=== PATIENT | female | born 1995 | race Caucasian/White ===

== ENCOUNTER 2020-09-01 10:54 | Outpatient (RCR) | payer BC, OTHER, SELFPAY ==
[2020-09-01 11:01] VITALS: BMI 50.9
[2020-09-01 11:10] VITALS: BMI 50.9
== END 2020-11-16 09:15 | disposition home or self-care (01) ==
LOC: ANHDMC 10:54
PROVIDERS: PCP Nurse Practitioner Family; Visit Provider Nurse Practitioner Family
DX: E66.01 Morbid (severe) obesity due to excess calories (principal); Z71.3 Dietary counseling and surveillance
CPT/HCPCS: 97802

== ENCOUNTER 2021-01-05 11:00 | Outpatient (RCR) | payer BC, OTHER, SELFPAY ==
[2020-12-10 11:09] VITALS: BMI 49.3
[2020-12-10 11:11] VITALS: BMI 49.3
[2021-01-05 11:09] VITALS: BMI 49.3
== END 2021-03-01 14:24 | disposition home or self-care (01) ==
LOC: ANHDMC 11:00
PROVIDERS: PCP Nurse Practitioner Family; Visit Provider Nurse Practitioner Family
DX: E66.01 Morbid (severe) obesity due to excess calories (principal); Z71.3 Dietary counseling and surveillance
CPT/HCPCS: 97803

== ENCOUNTER 2021-03-12 16:17 | Emergency (ER) | payer BC, OTHER, SELFPAY ==
--- NOTE | 2021-03-12 16:23 | ED_ITS ---
HPI - URI/Sore Throat General Chief Complaint: Upper Respiratory Infection Stated Complaint: Fatigue,Fever,Chills Time Seen by Provider: 03/12/21 16:33 Source: patient and RN notes reviewed Mode of arrival: ambulatory Limitations: no limitations Related Data Allergies Allergy/AdvReac Type Severity Reaction Status Date / Time venom-honey bee Allergy Severe SEVERE Verified 03/12/21 16:34 SWELLING AT SITE kiwi Allergy Mild Itching Verified 03/12/21 16:34 Review of Systems Review of Systems: Narrative: CONSTITUTIONAL: Denies malaise, chills, sweats, or fever. EYES: Denies visual changes, redness, or discharge. ENT: Reports rhinorrhea, congestion, sinus pain, otalgia and sore throat. CARDIOVASCULAR: Denies chest pain, palpitations, or edema. RESPIRATORY: Reports cough. Denies dyspnea. GASTROINTESTINAL: Denies abdominal pain, nausea, vomiting, diarrhea SKIN: Denies rash or itching. MUSCULOSKELETAL: Denies myalgia. NEUROLOGIC: Denies headache. All systems reviewed & are unremarkable except as noted in HPI and below PMFSH Social History Social History Spiritual care concerns: No Comments At time of signature, agree with nursing past medical, surgical, social and family history. There is no relevant family history pertinent to the presenting complaint Exam Narrative: Exam Narrative: GENERAL: Well-appearing, well-nourished, and in no acute distress. HEAD: Normocephalic EYES: PERRLA, conjunctivae clear ENT: Nares clear, turbinates edematous and erythematous, clear discharge. Mucous membranes moist. TM pearly pugh with dull light reflex bilaterally; no tragal tenderness. Oropharynx erythematous without lesions. Tonsils enlarged and without exudate, no drooling, no hoarseness, no trismus, uvula midline. NECK: Supple. No lymphadenopathy CHEST: Clear to auscultation, breath sounds equal. No wheezing, rhonchi, rales, or stridor. No respiratory distress, speaks in full sentences. HEART: Regular rate and rhythm. No murmur heard. SKIN: Warm, dry, no rash. NEURO: Alert and oriented x3. PSYCH: Normal mood and affect Course Course Emergency Course: Patient is aware of diagnosis, understands and agrees to treatment plan. Anticipatory guidance given. Patient agrees to follow-up as directed and is aware of reasons to seek care at the emergency department. Portions of this record may have been created with voice recognition software Vital Signs Vital signs: Reviewed. MDM - URI/Sore Throat MDM Narrative Medical decision making narrative: Differential diagnosis considered: Beebe virus, strep pharyngitis, allergic rhinitis, upper respiratory tract infection, sinusitis, rhinosinusitis, nasopharyngitis. viral pharyngitis, otitis media, otitis externa, pneumonia, bronchitis, viral cough syndrome, viral syndrome, and influenza. Exam findings show no acute concerns or changes; patient is non- toxic appearing and is in no distress. Patient is appropriate for outpatient treatment and follow-up. Critical Care Time Critical Care Time Critical Care Time: No
[2021-03-12 16:28] VITALS: BP 158/94; PULSE 59; RESP 18; TEMP 36.9; O2SAT 100
--- NOTE | 2021-03-12 16:37 | ED.FEVER ---
HPI - Fever General Chief Complaint: Upper Respiratory Infection Stated Complaint: Fatigue,Fever,Chills Time Seen by Provider: 03/12/21 16:33 Source: patient and RN notes reviewed Mode of arrival: ambulatory Limitations: no limitations History of Present Illness HPI Narrative: 25-year-old female presents with concern for 1 week history of general malaise, fever, cold chills, nausea without vomiting, one episode of diarrhea daily. Reports symptoms worsen at night. She denies cough, shortness of breath, rhinorrhea, nasal congestion, sore throat, ear pain. She denies abdominal pain. Reports low back pain for 1 week. She denies dysuria, urgency, frequency, hematuria. MD elicited complaint: fever Related Data Home Medications Medication Instructions Recorded Confirmed escitalopram oxalate [Lexapro] 20 mg PO DAILY 03/12/21 03/12/21 Allergies Allergy/AdvReac Type Severity Reaction Status Date / Time venom-honey bee Allergy Severe SEVERE Verified 03/12/21 16:34 SWELLING AT SITE kiwi Allergy Mild Itching Verified 03/12/21 16:34 Review of Systems Review of Systems: Narrative: CONSTITUTIONAL: Reports fatigue, malaise, chills, or fever. EYES: Denies visual changes, redness, or discharge. ENT: Denies rhinorrhea, congestion, sinus pain, otalgia or sore throat. CARDIOVASCULAR: Denies chest pain, palpitations, or edema. RESPIRATORY: Denies cough or dyspnea. GASTROINTESTINAL: Denies abdominal pain, vomiting. Reports nausea and diarrhea GENITOURINARY: Denies dysuria or hematuria. SKIN: Denies rash or itching. MUSCULOSKELETAL: Reports bilateral low back pain, myalgia. NEUROLOGIC: Denies numbness, weakness, or headache. All systems reviewed & are unremarkable except as noted in HPI and below PMFSH Social History Social History Gender identity (if verbalized by the patient): Female Spiritual care concerns: No Comments At time of signature, agree with nursing past medical, surgical, social and family history. There is no relevant family history pertinent to the presenting complaint Exam Narrative: Exam Narrative: GENERAL: Well-appearing, well-nourished, and in no acute distress. HEAD: Normocephalic, atraumatic. EYES: PERRLA, conjunctivae clear, and EOMI. No nystagmus. ENT: Nares clear, turbinates pink, no rhinorrhea or epistaxis. Mucous membranes moist. TM pearly pugh with sharp light reflex bilaterally; no tragal tenderness. Oropharynx without erythema or lesions. Tonsils not enlarged and without exudate. NECK: Supple. No lymphadenopathy. CHEST: No respiratory distress. Clear to auscultation. No bony deformities, no asymmetry. Speaks in full sentences. HEART: Regular rate and rhythm. No murmur heard. Normal peripheral pulses. ABDOMEN: Soft, nontender, obese, normal active bowel sounds, no palpable masses. EXTREMITIES: Normal range of motion. No edema. Normal strength and sensation. No midline back tenderness SKIN: Warm, dry, no rash. NEURO: Alert and oriented x3. No focal deficits. PSYCH: Normal mood and affect Course Course Emergency Course: Patient is aware of diagnosis, understands and agrees to treatment plan. Anticipatory guidance given. Patient agrees to follow-up as directed and is aware of reasons to seek care at the emergency department. Portions of this record may have been created with voice recognition software Vital Signs Vital signs: Vital Signs Temperature 98.5 F 03/12/21 16:28 Pulse Rate 59 L 03/12/21 16:28 Respiratory Rate 18 03/12/21 16:28 Blood Pressure 158/94 H 03/12/21 16:28 Pulse Oximetry 100 03/12/21 16:28 Temperature 98.5 F 03/12/21 16:28 Pulse Rate 59 L 03/12/21 16:28 Respiratory Rate 18 03/12/21 16:28 Blood Pressure 158/94 H 03/12/21 16:28 Pulse Oximetry 100 03/12/21 16:28 Reviewed. MDM - Fever MDM Narrative Medical decision making narrative: Differential diagnosis considered: UTI, pyelonephritis, Beebe virus, strep pharyngitis, allergic rhi
== END 2021-03-12 16:59 | disposition home or self-care (01) ==
PROVIDERS: Emergency Provider Nurse Practitioner; PCP Nurse Practitioner Family
DX: B34.9 Viral infection, unspecified (principal); F41.9 Anxiety disorder, unspecified; F32.9 Major depressive disorder, single episode, unspecified
CPT/HCPCS: 81003; 99212; G0463

== ENCOUNTER 2023-05-31 10:17 | Outpatient (CLI) | payer BC, SELFPAY ==
[2023-05-31 12:09] LABS: Basophils Percent Auto 0.7 % (0.2-1.2); Eosinophils Absolute Auto 0.2 K/mm3 (0-0.3); Eosinophils Percent Auto 3.1 % (0-4.4); Hematocrit 37.4 % (37.0-47.0); Hemoglobin 11.7 g/dL (12.0-15.0); Lymphocytes Absolute Auto 2.63 K/mm3 (0.9-3.2); Lymphocytes Percent Auto 43.5 % (18.3-44.2); Mean Corpuscular HGB Conc 31.3 g/dl (32-36); Mean Corpuscular Hemoglobin 27.5 pg (26-34); Mean Corpuscular Volume 87.8 fl (80-100); Mean Platelet Volume 12.1 fl (7.4-10.4); Monocytes Absolute Auto 0.5 K/mm3 (0.1-0.6); Monocytes Percent Auto 8.6 % (2.6-8.5); Neutrophils Absolute Auto 2.7 K/mm3 (1.3-6.7); Neutrophils Percent Auto 44.1 % (45.5-73.1); Platelet Count Result 297 k/mm3 (150-375); Red Blood Count 4.26 M/mm3 (4.2-5.4); Red Cell Distribution Width 12.6 % (11.5-14.5); White Blood Count 6.1 K/mm3 (4.5-10.0)
[2023-05-31 12:24] LABS: Anion Gap 9 mmol/L (8-16); Blood Urea Nitrogen 11 mg/dL (7-17); Carbon Dioxide 25 mmol/L (22-30); Chloride 106 mmol/L (98-107); Potassium 3.8 mmol/L (3.4-5.0); Sodium 140 mmol/L (137-145)
[2023-05-31 12:25] LABS: Alanine Aminotransferase 23 U/L (6-35); Albumin Level 3.9 g/dL (3.5-5.1); Alkaline Phosphatase 54 U/L (38-126); Aspartate Amino Transferase 25 U/L (14-36); Bilirubin,Total 0.8 mg/dL (0.2-1.3); Calcium 8.3 mg/dL (8.4-10.2); Cholesterol 165 mg/dL (0-200); Estimated Glomerular Filt Rate > 60; Glucose 87 mg/dL (65-110); HDL Direct 41 mg/dL; Triglycerides 85 mg/dL (<150)
[2023-05-31 12:35] LABS: LDL Cholesterol Direct 96 mg/dL
[2023-05-31 12:58] LABS: Hemoglobin A1C 5.2 % (<5.7)
[2023-05-31 13:06] LABS: Thyroid Stimulating Hormone Reflex 0.497 uIU/mL (0.465-4.68)
== END 2023-05-31 10:18 | disposition home or self-care (01) ==
LOC: ANHLAB 10:22
PROVIDERS: PCP Nurse Practitioner Family; Visit Provider Nurse Practitioner Family
DX: Z13.0 Encounter for screening for diseases of the blood and blood-forming organs and certain disorders involving the immune mechanism (principal); Z13.1 Encounter for screening for diabetes mellitus; Z13.29 Encounter for screening for other suspected endocrine disorder; Z13.220 Encounter for screening for lipoid disorders
CPT/HCPCS: 36415; 80053; 80061; 83036; 84443; 85025

== ENCOUNTER 2023-09-27 00:11 | Day surgery (SDC) | payer BC, SELFPAY ==
[2023-09-14 10:13] VITALS: BMI 48.5
--- NOTE | 2023-09-14 10:18 | PC.NURSE ---
Report to the Outpatient Waiting Room, entrance under the green pavilion located off [facility], at time 0600 on date 09/27/23. Planned Procedure Time: 0730. Time changes happen often and if your time is changed the preop area will call you the afternoon before. - You and your visitor will be asked to self-screen and do not enter if you have any COVID symptoms. - A mask is optional within the hospital at this time. Patients may have clear liquids (water, carbonated beverages, clear teas, apple juice) until 3 hours prior to surgery with a maximum of 20 ounces. - No food from midnight until time of surgery Take the following medications with a SIP of water the morning of surgery: NONE DO NOT STOP ANY OF YOUR OTHER PRESCRIPTION MEDICATIONS PRIOR TO SURGERY ?EXCEPT THE FOLLOWING Medications to discontinue per physician: VITAMINS/SUPPLEMENTS Date to take last dose: 09/23/23 Please no make-up, nail yoruba, hairspray, perfume, deodorant, or body powder the day of surgery. No jewelry (including any body piercings) or valuables the day of surgery, leave them at home. Please take a shower or bath the night before, or the morning of, surgery with an antibacterial soap. Wear comfortable, loose fitting clothing. - Jewelry must be removed prior to entering the operating room. Rings and piercings that are not removed may be cut off. - The hospital will not accept responsibility for valuables. - Please leave all valuables, including medications, at home the day of surgery. If you are going home after surgery, a licensed flatbed driver must drive you home. - NO public transportation without another adult if you receive anesthesia. - We recommend that an adult stay with you for 24 hours following discharge. - We also recommend that you do not drive, make important decision, drink alcoholic beverages, or take any drugs that were not prescribed by your health care provider for at least 24 hours after your discharge time. Follow any additional instructions given to you from your surgeon. If you or anyone in your household have experienced Covid symptoms in the past week, please notify your surgeon or the nurse liaison at the phone number below for possible testing. Telephone instructions given to PT - FLAKITA GOTTI and asked if any additional questions and then verbalized understanding. Patient advised to call surgeon office or pre surgery nurse liaison [phone] if any additional questions.
[2023-09-27] VITALS (7 sets, daily range): BP systolic 106–134; BP diastolic 60–85; PULSE 50–65; RESP 12–20; TEMP 36.2–36.3; O2SAT 98–100
[2023-09-27] MEDS: LACTATED RINGERS 1,000 ML 30 ML IV CONT ×2 (06:50→08:51)
[2023-09-27] MEDS: ACETAMINOPHEN 500 MG TABLET 1000 MG PO (06:50)
[2023-09-27] MEDS: KETOROLAC 15 MG/ML VIAL (*BKC) IV PUSH (06:50)
[2023-09-27] MEDS: SCOPOLAMINE 1 MG PATCH 1 PATCH TRANSDERM (06:50)
--- NOTE | 2023-09-27 06:53 | P.PNAN_ITS ---
Anes - Initial Pre Proc Eval Procedure: Operation Date: 09/27/23 07:30 Proposed Procedures p Bilateral Laparoscopic Salpingectomy - Kimberly Romo MD Date/Time: 09/27/23 06:53 Surgeon: Kimberly Romo MD Pre Op Diagnosis: desires sterilization Patient Data Age: 28 Gender: F Height: 1.7 m Weight: 140.6 kg Allergies Allergy/AdvReac Type Severity Reaction Status Date / Time venom-honey bee Allergy Severe SEVERE Verified 09/14/23 10:12 SWELLING AT SITE kiwi Allergy Mild Itching Verified 09/14/23 10:12 avocado Allergy Vomiting Verified 09/14/23 10:12 lamotrigine Allergy Hives Verified 09/14/23 10:12 Home Medications Medication Instructions Recorded Confirmed Type escitalopram oxalate 20 mg tablet 20 mg PO HS 03/12/21 09/14/23 History (Lexapro) magnesium 250 mg tablet 250 mg PO DAILY 09/14/23 09/14/23 History Patient hx anesthesia problems: none Family hx anesthesia problems: none Results Review: All pre-operative results and documents have been reviewed as part of the pre- operative evaluation. ON LICENSE OF [facility] Past Medical History Medical History (Updated 09/27/23 @ 06:53 by Eduar Roy MD) Morbid obesity Surgical History Surgical History (Updated 09/27/23 @ 06:53 by Eduar Roy MD) Hx of tonsillectomy Social History Social History Smoking status: Never smoker Alcohol intake: current Alcohol use details: RARE Substance use: current Substance use type: marijuana Living arrangements: with family Gender identity (if verbalized by the patient): Female Spiritual care concerns: No Anes - Eval Final PreProcedure Day of Procedure 09/27/23 06:53 Patient weight: morbidly obese Heart: regular rate and rhythm Lungs: clear to auscultation Airway: Mallampati scale class II Neurological: alert and oriented Last oral intake: >/= 8 hours ASA classification: III Emergent: no Anesthetic plan: proceed Anesthesia type and monitoring: general ETT and standard monitoring Results Review: All pre-operative results and documents have been reviewed as part of the pre- operative evaluation. Informed Consent: The patient's anesthetic plan and its attendant risks and benefits were discussed with the patient/family/POA. Questions were solicited and answers provided to the satisfaction of the patient/family/POA.
--- NOTE | 2023-09-27 07:11 | WPDHPUPDATE1 ---
History and Physical Update Update Date/Time: 09/27/23 07:11 History and Physical has been reviewed, including an updated exam of the patient. There are NO changes in the patient's condition. Risks, benefits, and alternatives have been discussed and questions answered. Patient agrees to proceed with procedure.
--- NOTE | 2023-09-27 07:16 | PM.IMHP ---
H&P: HPI History of Present Illness Date/Time: 09/27/23 07:16 Chief Complaint: Unwanted fertility Narrative: 28-year-old female desires infertility. We agreed to perform laparoscopic bilateral salpingectomy. She understands the risks. She understands the procedure very well. She understands that injuries may occur that result in hospitalization, more surgery and severe illness. She understands there is risk of hemorrhage infection. She denies any nausea, vomiting, fever, chills. She denies any chest pain or shortness of breath. Review of Systems Review of Systems: All systems reviewed & are unremarkable except as noted in HPI and below Constitutional: Constitutional: Denies chills, Denies fatigue, Denies fever(s) and Denies weakness Eyes: Eyes: Denies blurry vision, Denies change in vision, Denies loss of peripheral vision, Denies loss of vision, Denies other visual disturbances and Denies eye pain ENT: Denies vertigo, Denies dizziness, Denies hearing loss, Denies mouth pain, Denies nasal obstruction, Denies neck mass and Denies neck pain Cardiovascular: Cardiovascular: Denies chest pain, Denies diaphoresis, Denies syncope, Denies leg edema and Denies dyspnea Respiratory: Respiratory: Denies chest congestion, Denies cough, Denies hemoptysis, Denies dyspnea and Denies wheezing Gastrointestinal: Gastrointestinal: Denies abdominal pain, Denies constipation, Denies diarrhea, Denies nausea and Denies vomiting Genitourinary: Genitourinary: Denies hematuria, Denies change in libido, Denies nocturia, Denies genital lesions, Denies flank pain and Denies urinary urgency Musculoskeletal: Musculoskeletal: Denies abnormal gait, Denies back pain, Denies myalgias, Denies arthralgias, Denies joint swelling, Denies muscle weakness and Denies neck pain Integumentary/Breasts: Skin/Breast: Denies swelling, Denies breast pain, Denies breast mass, Denies dry skin, Denies nipple discharge, Denies unusual bruising and Denies jaundice Neurologic: Denies Neuro-related abnormal movements, Denies Abnormal speech present, Denies abnormal gait, Denies behavioral changes, Denies confusion, Denies vertigo, Denies dizziness, Denies syncope, Denies loss of vision, Denies memory loss, Denies convulsions and Denies weakness Psychiatric: Psychiatric: Denies abnormal sleep pattern, Denies behavioral changes, Denies change in libido, Denies confusion, Denies depression, Denies anhedonia and Denies memory loss Endocrine: Endocrine: Reports no additional endocrine complaints, Denies change in libido and Denies fatigue Hematologic/Lymphatic: Hematologic/Lymphatic: Reports no additional hematologic/lymphatic complaints Allergic/Immunologic: Allergic/Immunologic: Reports no additional allergic/immunologic complaints and Denies wheezing PMFSH Past Medical History Medical History (Updated 09/27/23 @ 07:18 by Kimberly Romo MD) Morbid obesity Surgical History Surgical History (Updated 09/27/23 @ 06:53 by Eduar Roy MD) Hx of tonsillectomy Social History Social History Smoking status: Never smoker Alcohol intake: current Alcohol use details: RARE Substance use: current Substance use type: marijuana Living arrangements: with family Gender identity (if verbalized by the patient): Female Spiritual care concerns: No Meds Home Medications and Allergies Home Medications Medication Instructions Recorded Confirmed Type escitalopram oxalate 20 mg tablet 20 mg PO HS 03/12/21 09/14/23 History (Lexapro) magnesium 250 mg tablet 250 mg PO DAILY 09/14/23 09/14/23 History Allergies Allergy/AdvReac Type Severity Reaction Status Date / Time venom-honey bee Allergy Severe SEVERE Verified 09/27/23 07:11 SWELLING AT SITE kiwi Allergy Mild Itching Verified 09/27/23 07:11 avocado Allergy Vomiting Verified 09/27/23 07:11 lamotrigine Allergy Hives Verified 09/27/23 07:11
--- NOTE | 2023-09-27 08:38 | W.PM.PROC2 ---
Procedure Note - Detailed Date of Procedure 09/27/23 Pre-op Diagnosis desires sterilization Post-op Diagnosis Same Procedure Performed Laparoscopic bilateral salpingectomy Surgeon Kimberly Romo MD Anesthesia General Indications Unwanted fertility Findings Normal pelvic anatomy Description of Procedure The patient was taken the operating room. She was prepped and draped in the dorsal lithotomy position after induction of general anesthesia. A 5 mm skin incision was made in the left upper quadrant of the abdominal skin. A 5 mm trocar was inserted the intra-abdominal cavity under direct visualization of the scope. Pneumoperitoneum was achieved. A 5 mm trocar was inserted in the left lower quadrant identical fashion. A 5 mm infraumbilical trocar was inserted in identical fashion as well. The bilateral fallopian tubes were removed. This was done by using a LigaSure cautery. The mesosalpinx adjacent to the tube was cauterized transected with LigaSure. This was initiated in the area the ovary and in a stepwise fashion moved medially to the area of the cornu of the uterus. Once there the fallopian tube was cauterized and transected. This was done in identical fashion on each side. The fallopian tubes were taken out through the left lower quadrant trocar site. The pneumoperitoneum was reduced. The trocars removed. The skin was closed with subcuticular 4 Monocryl and covered with Dermabond. She was taken to cover stable condition. Sponge lap and needle counts were correct x2. Estimated Blood Loss 5 Drains No Packing No Pathology Yes Complications No immediate complications Condition Stable Disposition PACU
--- NOTE | 2023-09-27 08:47 | SUR.PHASEI ---
0847: Simple mask removed.
[2023-09-27] MEDS: fentaNYL CITRATE INJ (*CRX) 100 MCG/2 ML VIAL 25 MCG IV PUSH ×2 (09:06→09:09)
[2023-09-27] MEDS: oxyCODONE HCL (*CRX) 5 MG TAB IR PO (09:37)
[2023-09-27] MEDS: ONDANSETRON INJ 4 MG/2 ML VIAL IV PUSH (09:38)
== END 2023-09-27 10:20 | disposition home or self-care (01) ==
PROVIDERS: PCP Nurse Practitioner Family; Visit Provider Obstetrics & Gynecology
PROC: (CPT 49320; principal; 2023-09-27 07:30)
DX: Z30.2 Encounter for sterilization (principal); N83.8 Other noninflammatory disorders of ovary, fallopian tube and broad ligament; F12.90 Cannabis use, unspecified, uncomplicated; E66.01 Morbid (severe) obesity due to excess calories; Z68.42 Body mass index [BMI] 45.0-49.9, adult
CPT/HCPCS: 58661; 88302; A9270; J0330; J1100; J1596; J1885; J2250; J2405; J2704; J3010; J7120

== ENCOUNTER 2024-04-15 11:38 | Outpatient (CLI) | payer BC, SELFPAY ==
[2024-04-15 12:32] LABS: Hematocrit 42.9 % (37.0-47.0); Hemoglobin 13.6 g/dL (12.0-15.0); Mean Corpuscular HGB Conc 31.7 g/dl (32-36); Mean Corpuscular Hemoglobin 28.4 pg (26-34); Mean Corpuscular Volume 89.6 fl (80-100); Mean Platelet Volume 11.9 fl (7.4-10.4); Platelet Count Result 274 k/mm3 (150-375); Red Blood Count 4.79 M/mm3 (4.2-5.4); Red Cell Distribution Width 12.3 % (11.5-14.5); White Blood Count 6.8 K/mm3 (4.5-10.0)
[2024-04-15 12:46] LABS: Alanine Aminotransferase 20 U/L (6-35); Albumin Level 4.3 g/dL (3.5-5.1); Alkaline Phosphatase 54 U/L (38-126); Anion Gap 10 mmol/L (4-12); Aspartate Amino Transferase 23 U/L (14-36); Bilirubin,Total 1.2 mg/dL (0.2-1.3); Blood Urea Nitrogen 11 mg/dL (7-17); Calcium 8.9 mg/dL (8.4-10.2); Carbon Dioxide 20 mmol/L (22-30); Chloride 107 mmol/L (98-107); Cholesterol 170 mg/dL (0-200); Estimated Glomerular Filt Rate > 60; Glucose 90 mg/dL (65-110); HDL Direct 40 mg/dL; Sodium 137 mmol/L (137-145); Triglycerides 110 mg/dL (<150)
[2024-04-15 12:50] LABS: Hemoglobin A1C 5.6 % (<5.7)
[2024-04-15 12:56] LABS: LDL Cholesterol Direct 115 mg/dL
[2024-04-15 13:24] LABS: Thyroid Stimulating Hormone Reflex 0.727 uIU/mL (0.465-4.68)
== END 2024-04-15 11:39 | disposition home or self-care (01) ==
LOC: ANHLAB 11:41
PROVIDERS: PCP Nurse Practitioner Family; Visit Provider Nurse Practitioner Family
DX: Z13.29 Encounter for screening for other suspected endocrine disorder (principal); Z13.220 Encounter for screening for lipoid disorders; Z13.1 Encounter for screening for diabetes mellitus; Z13.0 Encounter for screening for diseases of the blood and blood-forming organs and certain disorders involving the immune mechanism
CPT/HCPCS: 36415; 80053; 80061; 83036; 84443; 85027

== ENCOUNTER 2024-12-01 11:42 | Emergency (ER) | payer BC, SELFPAY ==
--- NOTE | ~2024-12-01 | XR_ITS ---
AP view of the pelvis and AP and lateral views of the left hip Clinical history: Pain Findings: No acute fracture or dislocation is seen. Osseous alignment is anatomic. Bilateral hip and SI joint spaces are preserved. Soft tissues are unremarkable. Impression: No significant abnormality is seen. Reviewed, dictated and finalized at [facility]. Impression: No significant abnormality is seen.
--- NOTE | ~2024-12-01 | XR_ITS ---
Lumbosacral Spine: AP and lateral views Clinical History: Pain Findings: The normal lordotic curve is maintained. The vertebral bodies and posterior elements are i ntact. The intervertebral disc spaces are preserved. The sacroiliac joints are normally outlined. Impression: No significant abnormality. Reviewed, dictated and finalized at [facility]. Impression: No significant abnormality.
--- OUTSIDE RECORDS SUMMARY | 2024-12-01 11:44 | XMS_ITS | Referral Summary ---
Author Organization [facility] Address [address] [place] [address] Care Team Providers Care Treatment Supervisor Name Role Phone Unavailable Primary Care Provider Unavailabl e Source Comments [facility],non-owned Affiliates and Associated Physician Practices is amultiple site organization consisting of ambulatory clinics and hospital sitesin [place], [place], [place] and [place]. This disclosure is being madepursuant to the Care Everywhere program and may not contain all information available regarding this patient. Last updated 18.[facility] Allergies Active Allergy Reactions Criticality Noted Date Comments Bee Swelling 06/20/2013 Extensive local reaction Medications * Be aware that medications may not be up to date on this document. Alwaysverify current medications with the patient. Medication Sig Dispensed Refills Start Date End Date Status lisdexamfetamine (VYVANSE) 30 MG capsule Take 1 Cap by mouth every morning for 30 days 30 Cap 09/02/2016 Active Multiple Vitamins-Minerals (BIOTIN PLUS/CALCIUM/VIT D3 PO) Active sertraline (ZOLOFT) 50 MG tablet Take 1 Tab by mouth once daily 30 Tab 5 10/10/2016 Active Additional Information Patient taking differently:50 mg OralPRN, Reported on 02/22/2017 CALCIUM PO Take 60 mg by mouth once daily Active Active Problems Problem Noted Date Diagnosed Date Lactose intolerance 10/17/2016 Moderate single current epis ode of major depressive disorder 02/04/2016 Anxiety 02/04/2016 BMI (body mass index), pediatric, 95-99% for age 1007/08/2013 ADHD (attention deficit hype ractivity disorder), inattentive type 11/09/2010 Resolved Problems Problem Noted Date Diagnosed Date Resolved Date Depression 06/04/2012 07/08/2013 Immunizations Name Administration Dates Next Due DPT 04/20/2001, 7,1996,09/13,1996 HEP A PEDS 2 DOSE 11/15/2005,05/16/2005 HEP B VACCINE, PED/ADOL 02/14/1997,1996, HIB BOOSTER 08/18/1997, 7,1996,07/12 Human Papilloma Virus Vaccine 12/18/2008, 008,06/17/2008 INFLUENZA VACCINE 07/11/2008 INFLUENZA VACCINE, QUADR. (F LUZONE; FLULAVAL; FLUARIX; AFLURIA QUADRIVALENT; 6MO+), 0.5 ML (IIV4) 06/13/2016,07/21/2014,07/08/2013 MENINGOCOCCAL CONJUGATE (MCV4P) 10/17/2014,05/31 MMR 04/20/2001,05/16/1997 POLIO IPV 04/20/2001 POLIO OPV 1996,1996,1996 PPD 04/20/2001,05/21/1999 TDAP (7yrs+) 04/12/2007 Social History Tobacco Use Types Packs/Day Years Used Date Smoking Tobacco: Never Smokeless Tobacco: Never Alcohol Use Standard Drinks/Week Comments No 0 (1 standard drink = 0.6 oz pur e alcohol) Sex and Gender Information Value Date Recorded Sex Assigned at Not on file Gender Identity Not on file Sexual Orientation Not on file Last Filed Vital Signs Vital Sign Reading Time Taken Comments Blood Pressure 106/68 09/02/2016 9:07 AM OPERATION AGENT Pulse 76 04/21/2016 2:36 PM CDT Temperature 37.3 C (99.1 F) 08/01/2016 10:13 AM OPERATION AGENT Respiratory Rate 20 02/24/2016 12:3 6 PM CDT Oxygen Saturation 97% 02/24/2016 12: 36 PM CDT Inhaled Oxygen Concentration - - Weight 131.3 kg (289 lb 6.4 oz) 02/22/2017 9:29 AM CDT Height 169.5 cm (5' 6.75 ) 09/02/2016 9:07 AM CS T Body Mass Index 45.67 09/02/2016 9:07 AM OPERATION AGENT Plan of Treatment Not on file Goals Goal Patient Goal Type Associated Problems Recent Progress Patient-Stated? Author Reduce calorie intake to 1800 calories per day Diet Not on track( 016 7:00 PM CDT) No Diana Cheek MD Note: Caring for Your Overweight Child Eating a healthy diet: Think of the food you eat in terms of GO, SLOW, and WHOA foods. You can enjoy GO foods almost any time you like. Limit SLOW foods to certain occasions, no more than a few times per week. And enjoy WHOA foods only on special occasions, and then eat only a small portion. GO foods include low-fat, low-calorie foods that are also low in added sugar. They tend to be rich in nutrients, such as vitamins, minerals, and other healthy substances. Fresh fruits and vegetables are great examples of GO foods. That said, fried vegetables and fruits canned in syrup, despite their vital ingredients, fall into the category of WHOA foods. Be sure to stock up on GO foods so that you can offer a variety of foods to keep things interesting. SLOW foods tend to be higher in fat and added sugar than GO foods are. Examples include fruit juices, baked goods made with white, refined flour; and poultry cooked with the skin still on. WHOA foods are the highest in fat and added sugar. Foods prepared with heavy creams and butter, fried foods, and fatty meats are examples of foods you should only eat once in a while. One way to identify unhealthy eating triggers is for you to keep a journal, in which they writes down the food they ate, where they ate it, the time of day and - extremely important - the reasons for eating. Where can I go for more information? [place] [employer] ( ) www.aap.org, HealthyChildren.org www.healthychildren.org Website and free downloadable victor m for smartphones: http://www.[employer]/ [facility] Lifestyle: Use safety retraint in car Lifestyle On track( 016 2:39 PM CDT) Giulia Serna RN Note: NEW CAR SEAT SAFETY RULES Seat belt laws should apply to all vehicle occupants Administered Medications FLAKITA CASTRO Personal/Family 1995 [address] [place] [address] [facility] [employer] [id number] [place] [address]
--- OUTSIDE RECORDS SUMMARY | 2024-12-01 11:44 | XMS_ITS | Patient Health Summary ---
Author Organization [facility] Address [address] [place] [address] Care Team Providers Care Boiler Tube Reamer Name Role Phone Unavailable Primary Care Provider Unavailabl e Note from [facility],non-owned Affiliates and Associated Physician Practices is amultiple site organization consisting of ambulatory clinics and hospital sitesin [place], [place], [place] and [place]. This disclosure is being madepursuant to the Care Everywhere program and may not contain all information available regarding this patient. Last updated 18.[facility] Allergies * Bee(Swelling) Medications * Be aware that medications may not be up to date on this document. Alwaysverify current medications with the patient. * lisdexamfetamine (VYVANSE) 30 MG capsule(Started 09/02/2016) Take 1 Cap by mouth every morning for 30 days * Multiple Vitamins-Minerals (BIOTIN PLUS/CALCIUM/VIT D3 PO) * sertraline (ZOLOFT) 50 MG tablet(Started 10/10/2016) Take 1 Tab by mouth once daily 5 refills remaining * CALCIUM PO Take 60 mg by mouth once daily Active Problems Problem Noted Date Diagnosed Date Lactose intolerance 10/17/2016 Moderate single current epis ode of major depressive disorder 02/04/2016 Anxiety 02/04/2016 BMI (body mass index), pediatric, 95-99% for age 1007/08/2013 ADHD (attention deficit hype ractivity disorder), 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 (FLUZONE; FLULAVAL; FLUARIX; AFLURIA QUADRIVALENT; 6MO+), 0.5 ML (IIV4)(Given 06/13/2016, 07/21/2014, 07/08/2013) * MENINGOCOCCAL CONJUGATE (MCV4P)(Given 10/17/2014, 05/31/2011) * MMR(Given 04/20/2001, 05/16/1997) * POLIO IPV(Given 04/20/2001) * POLIO OPV(Given 1996, 1996, 1996) * PPD(Given 04/20/2001, 05/21/1999) * TDAP (7yrs+)(Given 04/12/2007) Social History Tobacco Use Types Packs/Day Years [...] Comments Blood Pressure 106/68 09/02/2016 9:07 AM MEDICAL ASSISTANT PER DIEM Pulse 76 04/21/2016 2:36 PM CDT Temperature 37.3 C (99.1 F) 08/01/2016 10:13 AM MEDICAL ASSISTANT PER DIEM Respiratory Rate 20 02/24/2016 12:3 6 PM CDT Oxygen Saturation 97% 02/24/2016 12: 36 PM CDT Inhaled Oxygen Concentration - - Weight 131.3 kg (289 lb 6.4 oz) 02/22/2017 9:29 AM CDT Height 169.5 cm (5' 6.75 ) 09/02/2016 9:07 AM CS T Body Mass Index 45.67 09/02/2016 9:07 AM MEDICAL ASSISTANT PER DIEM Procedures * XR FOOT LEFT 2VW(Performed 03/02/2017) Performed for Left foot pain * US ABDOMEN LIMITED(Performed 08/04/2016) Performed for Epigastric pain, Nausea without vomiting * LIPASE BLOOD(Performed 08/01/2016) Performed for Epigastric pain, Nausea without vomiting * AMYLASE BLOOD(Performed 08/01/2016) Performed for Epigastric pain, Nausea without vomiting * COMPREHENSIVE METABOLIC PANEL(Performed 08/01/2016) Performed for Epigastric pain, Nausea without vomiting * CBC W AUTO DIFFERENTIAL(Performed 08/01/2016) Performed for Epigastric pain, Nausea without vomiting * HEMOGLOBIN A1C(Performed 01/30/2016) Performed for BMI (body mass index), pediatric, 95-99% for age * LIPID PROFILE(Performed 01/30/2016) Performed for BMI (body mass index), pediatric, 95-99% for age * GLUCOSE(Performed 01/30/2016) Performed for BMI (body mass index), pediatric, 95-99% for age * T4 FREE(Performed 01/30/2016) Performed for Anxiety * TSH(Performed 01/30/2016) Performed for Anxiety * XR WRIST RIGHT 3VW OR MORE(Performed 07/21/2014) Performed for Right wrist pain * URINALYSIS - POINT OF CARE(Performed 07/10/2012) Performed for Nausea with vomiting * URINALYSIS - POINT OF CARE(Performed 10/21/2011) Performed for Abdominal pain, unspecified site * XR ABDOMEN KUB(Performed 10/21/2011) Performed for Abdominal pain, unspecified site * XR FOOT LEFT 3VW OR MORE(Performed 09/23/2010) Performed for Left foot pain * STREP A SCREEN - POINT OF CARE (AMB)(Performed 06/24/2010) Performed for Streptococcal sore throat * CULTURE AEROBIC+GRAM STAIN(Performed 05/17/2010) Performed for Acute Pharyngitis * STREP A SCREEN - POINT OF CARE (AMB)(Performed 05/17/2010) Performed for Acute Pharyngitis * CULTURE AEROBIC+GRAM STAIN(Performed 12/23/2009) Performed for Acute Pharyngitis * STREP A SCREEN - POINT OF CARE (AMB)(Performed 12/23/2009) Performed for Acute Pharyngitis Results * XR FOOT 2 VW LEFT (03/02/2017) Anatomical Region Laterality Modality Ankle / Foot Other Diana Cheek MD DIAGNOSTIC IMAGING O RDERABLES * US ABDOMEN LIMITED (08/04/2016) Anatomical Region Laterality Modality Abdomen Ultrasound Diana Cheek MD US ORDERABLES * (ABNORMAL) CBC W AUTO DIFFERENTIAL (08/01/2016 11:05 AM MEDICAL ASSISTANT PER DIEM) WBC 7.0 3.4 - 10.8 x10E3/uL [facility] INSURANCE BILL RBC 4.49 3.77 - 5.28 x10E6/uL [facility] INSURANCE BILL Hemoglobin 12.5 11.1 - 15.9 g/dL [facility] INSURANCE BILL Hematocrit 37.9 34.0 - 46.6 % [facility] INSURANCE BILL MCV 84 79 - 97 fL [facility] INSURANCE BILL MCH 27.8 26.6 - 33.0 pg [facility] INSURANCE BILL MCHC 33.0 31.5 - 35.7 g/dL [facility] INSURANCE BILL RDW 12.9 12.3 - 15.4 % [facility] INSURANCE BILL Platelet Count 288 150 - 379 x10E3/uL [facility] INSURANCE BILL Granulocytes % 49 % [facility] INSURANCE BILL Lymphocytes % 32 % [facility]ANCE [facility] Monocytes % 8 % [facility] INSURANCE BILL Eosinophils % 10 % [facility] INSURANCE BILL Basophils % 1 % [facility] INSURANCE BILL Immature Cells NOT NEEDED [facility] INSURANCE BILL Comment:Ancillary determined the test is not needed Granulocytes Absolute 3.5 1.4 - 7.0 x10E3/uL [facility] INSURANCE BILL Lymphocytes Absolute 2.2 0.7 - 3.1 x10E3/uL [facility] INSURANCE BILL Monocytes Absolute 0.6 0.1 - 0.9 x10E3/uL [facility] INSURANCE BILL Eosinophils Absolute 0.7(H) 0.0 - 0.4 x10E3/uL [facility] INSURANCE BILL Basophils Absolute 0.0 0.0 - 0.2 x10E3/uL [facility] INSURANCE BILL Immature Granulocytes 0 % [facility] INSURANCE BILL Immature Granulocytes Absolute 0.0 0.0 - 0.1 x10E3/uL [facility] INSURANCE BILL nRBC NOT NEEDED [facility] INSURANCE BILL Comment:Ancillary determined the test is not needed Comment Hematology NOT NEEDED [facility] INSURANCE BILL Comment:Ancillary determined the test is not needed Blood BLOOD SPECIMEN / Unknown 08/01/2016 11:05 AM MEDICAL ASSISTANT PER DIEM 08/01/2016 Narrative Resulting Agency Comment [facility] [address] [facility] [phone] Diana Cheek MD LAB - HEMATOLOGY ORD ERABLES [facility] INSURANCE BILL [address] [place] [address] * COMPREHENSIVE METABOLIC PANEL (08/01/2016 11:05 AM MEDICAL ASSISTANT PER DIEM) Glucose 84 65 - 99 mg/dL [facility] INSURANCE BILL BUN 12 6 - 20 mg/dL [facility] INSURANCE BILL Creatinine 0.91 0.57 - 1.00 mg/dL [facility] INSURANCE BILL BUN/Creatinine Ratio 13 8 - 20 [facility] INSURANCE BILL Sodium 141 136 - 144 mmol/L [facility] INSURANCE BILL Potassium 4.5 3.5 - 5.2 mmol/L [facility] INSURANCE BILL Chloride 104 97 - 106 mmol/L [facility] INSURANCE BILL CO2 23 18 - 29 mmol/L [facility] INSURANCE BILL Calcium 9.1 8.7 - 10.2 mg/dL [facility] INSURANCE BILL Protein Total 6.4 6.0 - 8.5 g/dL [facility] INSURANCE BILL Albumin 4.3 3.5 - 5.5 g/dL [facility] INSURANCE BILL Globulin Total 2.1 1.5 - 4.5 g/dL [facility] INSURANCE BILL Albumin/Globulin Ratio 2.0 1.1 - 2.5 [facility] INSURANCE BILL Bilirubin Total 0.8 0.0 - 1.2 mg/dL [facility] INSURANCE BILL Alkaline Phosphatase 63 39 - 117 IU/L [facility] INSURANCE BILL AST 19 0 - 40 IU/L [facility] INSURANCE BILL ALT 21 0 - 32 IU/L [facility] INSURANCE BILL Blood BLOOD SPECIMEN / Unknown 08/01/2016 11:05 AM MEDICAL ASSISTANT PER DIEM 08/01/2016 Narrative Resulting Agency Comment [facility] [address] [facility] [phone] Diana Cheek MD LAB - CHEMISTRY ZELDA HUNTER [facility] INSURANCE BILL [address] [place] [address] * (ABNORMAL) LIPASE BLOOD (08/01/2016 11:05 AM MEDICAL ASSISTANT PER DIEM) Lipase 62(H) 0 - 59 U/L [facility] INSURANCE BILL Blood BLOOD SPECIMEN / Unknown 08/01/2016 11:05 AM MEDICAL ASSISTANT PER DIEM 08/01/2016 Narrative Resulting Agency [facility] [address] [facility] [phone] Diana Cheek MD LAB - CHEMISTRY ZELDA HNUTER Performing Organization Address City/[facility]/ZIP Co de Phone Number [facility] INSURANCE BILL [address] [place] [address] * AMYLASE BLOOD (08/01/2016 11:05 AM MEDICAL ASSISTANT PER DIEM) Amylase 103 31 - 124 U/L [facility] INSURANCE BILL Blood BLOOD SPECIMEN / Unknown 08/01/2016 11:05 AM MEDICAL ASSISTANT PER DIEM 08/01/2016 Narrative Resulting Agency [facility] [address] [facility] [phone] Diana Cheek MD LAB - CHEMISTRY ZELDA HUNTER Performing Organization Address City/[facility]/ZIP Co de Phone Number [facility] INSURANCE BILL [address] [place] [address] * HEMOGLOBIN A1C (HgbA1C) (01/30/2016 8:46 AM CDT) Hemoglobin A1c 5.6 4.8 - 5.6 % [facility] ACCOUNT BILL Comment: . Pre-diabetes: 5.7 - 6.4 Diabetes: >6.4 Glycemic control for adults with diabetes: <7.0 Whole blood specimen (specimen) BLOOD SPECIMEN WITH EDTA / Unknown 01/30/2016 8:46 AM CDT 01/30/2016 1:19 PM CDT Narrative Resulting Agency [facility] [address] [facility] [phone] Diana Cheek MD LAB - CHEMISTRY ZELDA HUNTER [facility] ACCOUNT BILL * GLUCOSE (01/30/2016 8:46 AM CDT) Glucose 90 65 - 99 mg/dL [facility] ACCOUNT BILL Blood specimen (specimen) BLOOD SPECIMEN / Unknown 01/30/2016 8:46 AM CDT 01/30/2016 1:19 PM CDT Narrative Resulting Agency Comment [facility] [address] [facility] [phone] Diana Cheek MD LAB - CHEMISTRY ZELDA HUNTER Performing Organization Address [facility] de Phone Number [facility] ACCOUNT BILL * TSH (01/30/2016 8:46 AM CDT) TSH 1.510 0.450 - 4.500 uIU/mL [facility] ACCOUNT BILL Blood specimen (specimen) BLOOD SPECIMEN / Unknown 01/30/2016 8:46 AM CDT 01/30/2016 1:19 PM CDT Narrative Resulting Agency Comment [facility] [address] [facility] [phone] Diana Cheek MD LAB - CHEMISTRY ZELDA HUNTER Performing Organization Address [facility] de Phone Number [facility] ACCOUNT BILL * T4 FREE (01/30/2016 8:46 AM CDT) T4 Free 1.06 0.93 - 1.60 ng/dL [facility] ACCOUNT BILL Blood specimen (specimen) BLOOD SPECIMEN / Unknown 01/30/2016 8:46 AM CDT 01/30/2016 1:19 PM CDT Narrative Resulting Agency Comment [facility] [address] [facility] [phone] Diana Cheek MD LAB - CHEMISTRY ZELDA HUNTER Performing Organization Address City/[facility]/ZIP Co de Phone Number [facility] ACCOUNT BILL * (ABNORMAL) LIPID PROFILE (LIPID PANEL) (01/30/2016 8:46 AM CDT) Cholesterol 170(H) 100 - 169 mg/dL [facility] ACCOUNT BILL Triglycerides 70 0 - 89 mg/dL [facility] ACCOUNT BILL HDL Cholesterol 61 >39 mg/dL [facility] ACCOUNT BILL Comment: According to ATP-III Guidelines, HDL-C >59 mg/dL is considered a negative risk factor for CHD. VLDL Calculated 14 5 - 40 mg/dL [facility] ACCOUNT BILL LDL Calculated 95 0 - 109 mg/dL [facility] ACCOUNT BILL Comment NOT NEEDED [facility] ACCOUNT BILL Comment:Ancillary determined the test is not needed Blood specimen (specimen) BLOOD SPECIMEN / Unknown 01/30/2016 8:46 AM CDT 01/30/2016 1:19 PM CDT Narrative Resulting Agency Comment [facility] [address] [phone] Diana Cheek MD [facility] Organization Address City/State/ZIP Co de Phone Number [facility] ACCOUNT BILL * XR WRIST 3+ VW RIGHT MP (07/21/2014) Anatomical Region Laterality Modality Wrist / Hand Other Diana Cheek MD DIAGNOSTIC IMAGING O RDERABLES * URINALYSIS - POINT OF CARE (07/10/2012 10:20 AM CDT) Only the most recent of2 resultswithin the time period is included. Clarity UA POCT clear Color UA POCT yellow Leukocyte UA neg Negative Nitrite UA POCT neg Negative Urobilinogen UA POCT neg 0.1 - 1.0 EU/dL Protein UA POCT neg Negative pH UA 6 5.0 - 8.0 pH units Blood UA neg Negative Specific Lorane UA POCT 1.02 1.002 - 1.030 Ketone UA neg Negative Bilirubin UA POCT neg Negative Glucose UA neg Negative Urine specimen (specimen) URINE / Unknown Rubi Knowles MD LAB - POINT OF CARE ORDERABLES * XR ABDOMEN 1 VW (10/21/2011) Anatomical Region Laterality Modality Abdomen Other Rubi Knowles MD DIAGNOSTIC IMAGING O RDERABLES * XR FOOT LEFT 3+ VW (09/23/2010) Anatomical Region Laterality Modality Ankle / Foot Other Diana Cheek MD DIAGNOSTIC IMAGING O RDERABLES * (ABNORMAL) STREP A SCREEN - POINT OF CARE (AMB) (06/24/2010 3:02 PM CDT) Only the most recent of3 resultswithin the time period is included. Strep A Rapid POCT positive NEGATIVE - POSITIVE Strep A Internal Control NEGATIVE - POSITIVE Throat swab (specimen) ENTIRE THROAT (SURFACE REGION OF NECK) / Unknown 06/24/2010 3:02 PM CDT Rubi Knowles MD LAB - POINT OF CARE ORDERABLES * CULTURE ROUTINE (05/17/2010 4:23 PM CDT) Only the most recent of2 resultswithin the time period is included. Aerobic Bacterial Culture Final report [facility] ACCOUNT BILL Result 1 [facility] ACCOUNT BILL Comment:Routine respiratory nery ENTIRE PHARYNX / Unknown 05/17/2010 4:23 PM CDT 05/17/2010 9:54 PM CDT Narrative Resulting Agency Comment [facility] [address] [phone] Rubi Knowles MD LAB - MICROBIOLOGY O RDERABLES [facility] ACCOUNT BILL
--- OUTSIDE RECORDS SUMMARY | 2024-12-01 11:44 | XMS_ITS | Continuity of Care Document ---
Author Organization [facility] Address [address] [place] [address] Phone Care Team Providers Care Barber Instructor Name Role Phone [facility] Unavailable Unavail able Eduar Wyatt Unavailable Unavailable Procedures Procedure Date Vision Svcs Frames Purchases SV Poly Carb Sph +/- 7.12 To +/- 20 D No SV Poly Carb Sph Viola To +/- 4 010 Polycarb Lens Per Lens Eye Exam, New Patient Refraction Advance Directives Directive Yes / No Effective Date File Name No Information Encounters Encounter Description Practice Location Reason(s) For Visit Diagnoses Date Provider Providers Copied on Encounter [facility], [address] [place] [address] [address] [facility], [place], [place], [id number], [place] tel:[phone] [facility] No Information 0-201 0 [facility] . [address] [facility], [facility] [address], [place], [id number], [place]. tel:[phone] Referring Provider: Gianfranco Montero, [address] [place], [place] [address], [place], [address]. tel:[phone] sulting Provider: Eduar Wyatt, [address] [place], [place] [address]ate [facility], [place], [address]. tel:[phone] [facility], [address] [place] [address] [address], [place], [place], [id number], [place] tel:[phone] [facility] No Information 4-201 0 [place] Gianfranco. [address] , [address], [place], [address], [place]. tel:[phone] Family History Family Member Type Diagnosis Age At Onset No Information Payers Payer name Insurance type Covered republican ID Authoroga prabha(s) VSP [id number] Social History Type Description Quantity Date Captured Comments Sex Female Smoking Status No Information Chief Complaint And Reason For Visit No Information Reason For Referral Reason For Referral No Information History Of Present Illness Encounter Date Complaint History Of Prese nt Illness No Information Functional Status Date Functional Assessmen t No Information Instructions Date Instruction Additional Infor mation No Information Assessments Type Assessment Date No Information Patient Care Teams Name Effective Dates (start - stop) Status Members No Information
--- OUTSIDE RECORDS SUMMARY | 2024-12-01 11:45 | XMS_ITS | Referral Summary ---
Author Organization [facility] Address [address] [place] [address] Care Team Providers Care Grain Manager Name Role Phone Anne Marie Abdi TRUSS DESIGNER Primary Care Provider + Allergies No known active allergies Medications docusate sodium (COLACE) 100 mg capsuleIndicati ons:constipatio n Take 1 capsule (100 mg total) by mouth every 12 (twelve) hours for 14 days 28 capsule 05/08/2024 Active Active Problems Problem Noted Date Diagnosed Date Acute pain of right wrist 08/14/2018 Anxiety 02/04/2016 Social History Tobacco Use Types Packs/Day Years Used Date Smoking Tobacco: Never Smokeless Tobacco: Never Alcohol Use Standard Drinks/Week Comments Yes 0 (1 standard drink = 0.6 oz pur e alcohol) Personal Safety Answer Date Recorded Getting School Help Needed Not on file 12/09 Comments Unknown Sex and Gender Information Value Date Recorded Sex Assigned at Not on file Legal Sex Female 12:32 PM CDT Gender Identity Not on file Sexual Orientation Not on file Last Filed Vital Signs Vital Sign Reading Time Taken Comments Blood Pressure 154/96 05/08/2024 7:28 PM CDT Pulse 55 05/08/2024 7:28 PM CDT Temperature 36.9 C (98.4 F) 05/08/2024 4:47 PM CDT Respiratory Rate 16 05/08/2024 7:28 PM CDT Oxygen Saturation 98% 05/08/2024 7:28 PM CDT Inhaled Oxygen Concentration - - Weight 136.8 kg (301 lb 9.4 oz) 05/08/2024 4:47 PM CDT Height 170.2 cm (5' 7 ) 05/08/2024 4:47 PM CDT Body Mass Index 47.24 05/08/2024 4:47 PM CDT Plan of Treatment Not on file Insurance [facility] Member Subscriber Plan / Payer (Ef fective 2000-Present) Name:Flakita Castro Relation to Subscriber:Child Name:FLAKITA CASTRO Date of :1996 (Home) Address: [facility] [place] [address] Payer ID:[id number] (NAIC) Group ID:[id number] Type:[facility] Address: [address] CHOICE [facility] [place] Care Teams Grain Manager Relationship Specialty Start Date End Date Anne Marie Abdi NP PCP - General Nurse Practitioner 07/19/18
--- OUTSIDE RECORDS SUMMARY | 2024-12-01 11:45 | XMS_ITS | Data Portability ---
Author Organization [facility], [place] Address [address] [place] [address] Assessment Encounter Date Assessment Date Assessment LastModified by Organization Details LastModified Time 05/31/2023 05/31/2023 Annual gynecological exam performed. Patient will come back in a year unless there are new symptoms. Not available 05/31/2023 12:12:25 Plan of Treatment Reminders Order Date Submit Date Provider Last Modified By Organization Details Last Modified Time Details Appointments None recorded. Lab None recorded. Referral None recorded. Procedures None recorded. Surgeries laparoscopi c tubal ligation with fulguration of oviducts (SURG) [address], [facility] [address], [address], 3 14:10:33 salpingecto my, laparoscopi c (SURG) 2022 024 [facility], [facility] [address], [address], 4 09:45:31 Imaging None recorded. Medication Orders Slynd 4 mg (28) tablet 2023 024 [facility] 242, [address] [facility], [place], [address], 4 16:52:31 Patient TargetsNo targets recorded. Patient InstructionsNo instructions recorded. Reason for Referral None Reported. 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 FINAL DIAGN OSIS: Negat maritza for Intra epith elial Lesopal monaco or Glenn gonsalves (NIL) . Elect eunice albrecht jyoti d by Samantha perez, Boaz maurer, CT on 023 at 9:17 PM ----- ----- ----- ----- ----- ----- ----- ----- ----- ----- ----- ----- ----- ----- ----- ----- ----- ---- COMME NT: This speci men was revie wed by a Cytot echno logis t and/o r Patho logis t (as indic ated in this repor t) after evalu ation using the Thinp rep Imagi ng Syste m. CLINI SHUN INFOR MATIO N: Menst rual Statu s: LMP (if appli cable ): Clini shun Histo ry/Pr eviou s Pap: Type of Neopl colby (if appli cable ): Signi fican t Clini shun Findi ngs: Other Histo ry: Hormo mara (if appli cable ): PAP EDUCA RIMA L NOTE: The Pap Test is a scree paulina test with an inher ent false negat maritza rate. Liqui d-bas ed sampl ing may decre ase, but will not elimi erick, false negat maritza resul ts. A negat maritza resul t does not precl ude the prese nce and/o r devel opmen t of disea se, since the prese nce of abnor mal cells in the sampl e depen ds on the locat ion of the lesio n and sampl ing techn ique. Cyndee nued regul ar scree paulina is the best metho d of cance r preve ntion . If repor bereket cytol ogic findi ng do not corre late with physi shun and/o r histo rical findi ngs, furth er inves tigat ion is recom js d, as clini eusebio armstrong nted. Not Available [facility] (Lab) [address] [facility], [place], [address], 06/02/2023 22:20:28 Result Notes None recorded. Problems Name Problem SNOMED Code Status Onset Date Resolution Date Notes Provider Name and Address Organization Details Recorded Time Amenorrh ea 91240625 Completed 201307/21/2021 AMENORRH EA;Pract ice ID: 0001 Roseline Peña [facility] 15:40:[address] Concept Completed 201507/21/2021 Nexplano n;Record ed Elsewher e: No Locat ion: [facility] S ource: EHR Resource Specialist Teacher lux: N Practi ce ID: 0001 Aaron lable Time: 05:45:00 PM Roseline tay [facility] 15:41:21 Pregnanc y test negative [id number] Completed 201407/21/2021 Pregnanc y examinat ion or test, negative result;R ecorded Elsewher e: No Locat ion: [facility] S ource: EHR Resource Specialist Teacher lux: N Practi ce ID: 0001 Aaron lable Time: 08:30:00 AM Roseline tay [facility] 15:41:[address] Concept Completed 201707/21/2021 Encntr for obstetrician/gynecologist exam (general ) (routine ) w/o abn findings ;Recorde d Elsewher e: No [facility] ource: EHR Resource Specialist Teacher lux: N Virginiati ce ID: 0001 Aaron lable Time: 10:00:00 AM Roseline tay [facility] 15:41:15 Finding of body mass index 397057249 Completed 201507/21/2021 Body mass index (BMI) 40.0-44. 9, adult;Re corded Elsewher e: No Locat ion: [facility] S ource: EHR Resource Specialist Teacher lux: N Virginiati ce ID: 0001 Aaron lable Time: 09:30:00 AM Roseline tay [facility] 15:41:12 Irregula r periods 26816624 Completed 201407/21/2021 Irregula r menstrua l bleeding ;Recorde d Elsewher e: No Locat ion: [facility] S ource: EHR Resource Specialist Teacher lux: N Virginiati ce ID: 0001 Aaron lable Time: 08:30:00 AM Roseline tay [facility] 15:41:28 Finding of sensatio n of breast Completed 201607/21/2021 Mastodyn ia;Recor ded Elsewher e: No Locat ion: [facility] S ource: EHR Resource Specialist Teacher lux: N Virginiati ce ID: 0001 Aaron lable Time: 02:00:00 PM Roseline tay [facility] 15:40:55 Syphilis test finding 629902725 Completed 201507/21/2021 Encntr screen for infectio ns w sexl mode of transmis s;Record ed Elsewher e: No Locat ion: [facility] S ource: EHR Resource Specialist Teacher lux: N Practi ce ID: 0001 Aaron lable Time: 09:30:00 AM Roseline Casey maggi, [facility] 15:41:23 Finding of regulari ty of menstrua l cycle Completed 201707/21/2021 Irregula r menstrua tion, unspecif ied;Pasha rded Elsewher e: No [facility] ource: EHR Resource Specialist Teacher lux: N Practi ce ID: 0001 Aaron lable Time: 11:00:00 AM Roseline Casey maggi, [facility] 15:40:57 Contrace ptive sheath status 163622131 Completed 201507/21/2021 Encounte r for initial prescrip tion of other contrace ptives;R ecorded Elsewher e: No Locat ion: [facility] S ource: EHR Resource Specialist Teacher lux: N Practi ce ID: 0001 Aaron lable Time: 09:30:00 AM Roseline Casey tay, [facility] 15:41:[address] Concept Completed 201807/21/2021 Encntr for general adult medical exam w/o abnormal findings ;Recorde d Elsewher e: No [facility] ource: EHR Resource Specialist Teacher lux: N Practi ce ID: 0001 Aaron lable Time: 08:30:00 AM Roseline Casey tay [facility] 15:41:13 Educatio n Completed 201807/21/2021 Encounte r for other general counseli ng and advice on contrace ption;Re corded Elsewher e: No [facility] S ource: EHR Resource Specialist Teacher lux: N Practi ce ID: 0001 Aaron lable Time: 08:30:00 AM Roseline tay [facility] 1 15:41:17 Replacem ent of intraute rine contrace ptive device Completed 201807/21/2021 Encntr for removal and reinsert ion of uterin contrace p dev;Pasha rded Elsewher e: No Locat ion: [facility] S ource: EHR Resource Specialist Teacher lux: N Practi ce ID: 0001 Aaron lable Time: 02:15:00 PM Roseline tay, [facility] 1 15:41:26 Infectio n screenin g Completed 201507/21/2021 Encounte r for screenin g for oth infec/pa rastc diseases ;Recorde d Elsewher e: No Locat ion: [facility] S ource: EHR Resource Specialist Teacher lux: N Practi ce ID: 0001 Aaron lable Time: 09:30:00 AM Roseline tay, [facility] 1 15:40:58 Procedur e Completed 201507/21/2021 Enctr srvlnc implanta ble subderma l contrace ptive;Pr actice ID: 0001 Roseline tay [facility] 15:41:18 Problem Notes None recorded. Procedures Surgical History Date Name Laterality Status Provider Name and Address Organization Details Recorded Time 09/27/19 24 SALPINGECTOMY, LAPAROSCOPIC (SURG) completed Muna Maldonado [facility] 10/10/2023 23:02:54 07/16/20 20 Nexplanon Removal completed Aviva Cardenas [facility] 07/16/2020 10:50:07 Tonsillectomy completed Diana Boykin [facility] 06/25/2020 12:47:06 Imaging Results None recorded. Procedure Notes None recorded. Medical Equipment None Reported. Allergies Allergen ID Allergen Name Allergen Category Reaction Reaction Severity Criticality Documentation Date Start Date Code Code System Note Provider Name and Address Organization Details Recorded Time 2230 bee pollen environme nt,medica tion Not available Not available Not available 06/25/2020 78049 7 RxNorm Diana Boykin [facility], [facility] 0 12:45:32 44648 lamotrigi ne medicatio n hives severe Not available 05/31/2023 49569 RxNorm Abby Best maggi, [facility] 3 12:12:54 91713 avocado allergeni c extract food abdominal pain severe Not available 05/31/2023 30060 2 RxNorm Abby tay, [facility] 3 12:12:54 Medications Name Sig Start Date Stop Date Status Note LastModified by Organization Details LastModified Time oxycodone -acetamin ophen 5 mg-325 mg tablet TAKE 1 TABLET BY MOUTH EVERY 6 HOURS 03/11 completed Not Available Not Available Not Available Microgest in FE 10/14 (28) 1 mg-20 mcg (21)/75 mg (7) tablet take 1 tablet by oral route every day 10/03 completed Prescrib ed Elsewher e: No Locat ion: Jenny echeverria [facility] odify By: darin Encouncharlie r DateTime : 12/06/19 14 03:30:00 PM Not Available Not Available Not Available hydroxyzi ne HCl 25 mg tablet active Not Available Not Available No t Available Calcium-5 00 500 mg (as calcium carbonate 1,250 mg) tablet 02/13 completed Prescrib ed Elsewher e: Yes Loca tion: Jenny eche[facility] odify By: thelma Hite r DateTime : 05/06/20 15 08:30:00 AM Not Available Not Available Not Available escitalop phan 20 mg tablet TAKE 1 TABLET BY MOUTH EVERY DAY active Not Available Not Available No t Available Vyvanse 20 mg capsule take 2 capsule by oral route every day in the morning 02/13 completed Prescrib ed Elsewher e: Yes Loca tion: Jenny echeverria [facility] odify By: thelma Hite r DateTime : 12/06/19 14 03:30:00 PM Not Available Not Available Not Available Nexplanon 68 mg subdermal implant 07/21 completed Not Available Not Available Not Available Slynd 4 mg (28) tablet TAKE 1 TABLET BY MOUTH ONCE DAILY active Not Available Not Available No t Available Vitals Date Recorded Body height Body mass index (BMI) Body weight Systolic blood pressure Diastolic blood pressure Provider Name and Address Organization Details Last Updated DateTime 05/31/2023 166.37 cm 49.8 kg/m2 393784.0 8 g 117 mm[Hg] 77 mm[Hg] Abby Best [facility] 3 12:12:47 Date Recorded Body height Body mass index (BMI) Body weight Systolic blood pressure Diastolic blood pressure Provider Name and Address Organization Details Last Updated DateTime 08/03/2023 166.37 cm 50 kg/m2 495083.6 7 g 146 mm[Hg] 83 mm[Hg] [facility] 3 09:37:42 Date Recorded Body height Body mass index (BMI) Body weight Systolic blood pressure Diastolic blood pressure Provider Name and Address Organization Details Last Updated DateTime 10/03/2023 166.37 cm 50.5 kg/m2 031726.4 5 g 121 mm[Hg] 79 mm[Hg] [facility] 4 14:18:11 Date Recorded Body height Body mass index (BMI) Body weight Systolic blood pressure Diastolic blood pressure Provider Name and Address Organization Details Last Updated DateTime 03/11/2024 166.37 cm 50.8 kg/m2 575059.6 3 g 115 mm[Hg] 76 mm[Hg] Jocelin Villarreal [facility] 4 16:27:17 Social History Question Answer Notes LastModified by Organizat ion Details LastModified Time Tobacco Smoking Status Never Smoker Yesenia Hartman [facility] 08/03/2023 09:29:07 What Is Your Level Of Alcohol Consumption? Occasional jgumber Information not available 06/25/2020 How Many Years Have You Consumed Alcohol? 6 Information not available 05/31/2023 Are You Blind Or Do You Have Difficulty Seeing? No Information not available 05/31/2023 What Is Your Level Of Caffeine Consumption? Moderate Information not available 05/31/2023 How Much Tobacco Do You Chew? None Information not available 05/31/2023 In The 14 Days Before Symptom Onset, Have You Had Close Contact With A Laboratory-confir med COVID-19 While That Case Was Ill? No Information not available 05/31/2023 In The 14 Days Before Symptom Onset, Have You Had Close Contact With A Person Who Is Under Investigation For COVID-19 While That Person Was Ill? No Information not available 05/31/2023 Have You Been To An Area Known To Be High Risk For COVID-19? No Information not available 05/31/2023 Are You Deaf Or Do You Have Serious Difficulty Hearing? No Information not available 05/31/2023 What Type Of Diet Are You Following? REGULAR Information not available 05/31/2023 What Is The Highest Grade Or Level Of School You Have Completed Or The Highest Degree You Have Received? 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 Yes Information not available 05/31/2023 Do You Use Protection During Sex? Usually Information not available 05/31/2023 Do You Use Your Seat Belt Or Car Seat Routinely? Yes Information not available 05/31/2023 Do You Have Smoke And Carbon Monoxide Detectors In Your Home? Yes Information not available 05/31/2023 How Much Tobacco Do You Smoke? No Information not available 05/31/2023 Do You Feel Stressed (tense, Restless, Nervous, Or Anxious, Or Unable To Sleep At Night)? [id number] Information not available 05/31/2023 Do You Use Any Illicit Or Recreational Drugs? Yes Information not available 05/31/2023 Do You Use Sunscreen Routinely? Yes Information not available 05/31/2023 Have You Used IV Drugs? No Information not available 05/31/2023 Sex: Unknown Functional Status Question Answer Note LastModified by Organization D etails LastModified Time Are you able to walk? YESWOREST Information not available 05/31/2023 What is your exercise level? None Information not available 05/31/2023 Mental Status None recorded. Family History Relationship Description Onset Age of this Age Resolved Age Notes LastModified by Organization Details LastModified Time Mother Hypertensive disorder jgumber Not available 2019 12:41:25 Father Hypertensive disorder jgumber Not available 2019 12:41:25 Father Disorder of thyroid gland jgumber Not available 2019 12:42:36 Maternal Grandfather Hypertensive disorder jgumber Not available 2019 12:41:25 Paternal Aunt Disorder of thyroid gland jgumber Not available 2019 12:41:44 Maternal Grandmother Malignant tumor of breast [facility] Not available 2019 12:42:07 Medical History Condition Response Anxiety Disorder Y Other Y Gynecological History Statement/Question Response Abnormal Pap N Date of Last Mammogram Date of LMP 03/11/2024 N On BCP's at Conception? N STIs/STDs N Was last menstrual period normal Y HPV Vaccine N Colposcopy Duration of Flow (days) 4 Current Control Method Sterilizati on Are cycles usually normal Y Date of Last Colonoscopy Sexually Active? N Menses Monthly Y Date of DEXA bone scan Age of first menstrual cycle 13 Date of Last Pap Smear Sexual Problems? N LMP Definite Desired Control Method None N Obstetrics History GPAL:G 0 P 0 0 0 0 Past Encounters Encounter ID Performer Location Encounter Start Date Encounter Closed Date Diagnosis/Indication Diagnosis SNOMED-CT Code Diagnosis ICD10 Code Diagnosis Note [id number] Aviva Theresa [place] [address] [address] 06/25/2020 15:43:11 06/25/2020 16:17:52 Gynecologic examination 97423742 Z01.419 Take Calcium with Vitamin D 1200mg daily if not receiving in daily diet. It is strongly advised to have an annual flu shot and up can obtain at most pharmacies . If you have not had a TDap shot in the last 10 years you should obtain one as well. Discussed with patient & provided with informatio n regarding Gardisil vaccine to prevent the 4 strains for HPV that cause cervical cancer if under age 26. Encourage safe sexual practices, to use condoms and limit partners if not already in a monogamous relationsh ip. Do monthly self breast exams. Pt has decided to have nexplanon removed d/t irregular bleeding. Not interested in bc at this time. Have mammogram yearly or every other year depending on family history. BRCA testing is now available for patients with strong genetic history of female cancer. If interested contact the office. Engage in daily exercise of low impact aerobic exercise 45-60 minutes 4-5 times weekly. Avoid tobacco and illicit drugs as well as using moderation with alcohol intake less than 1-2 8 oz beverages daily. This lifestyle behavior pattern will lead to less health conditions and longer life span. If BMI greater than 25 weight watchers or dietary consult advised. Patient received above instructio ns, and questions have been answered. If you have any questions please call or respond to this email. Patient was made aware of the patient portal and may obtain a paper copy of today's plan if desired. [id number] [facility] [address],[place] [address] 07/16/2020 10:04:22 07/16/2020 11:20:31 Removal of subcutaneous contraceptive 223547613 Z30.46 [id number] [facility] [address],[place] [address] 07/30/2020 11:41:31 07/30/2020 16:40:37 Sampling of vagina for Papanicolaou smear 893320874 Z01.42 [id number] [facility] [address],[place] [address] 07/22/2021 13:54:09 07/22/2021 15:58:17 Gynecologic examination 85996010 Z01.419 Take Calcium with Vitamin D 1200mg daily if not receiving in daily diet. It is strongly advised to have an annual flu shot and up can obtain at most pharmacies . If you have not had a TDap shot in the last 10 years you should obtain one as well. Discussed with patient & provided with informatio n regarding Gardisil vaccine to prevent the 4 strains for HPV that cause cervical cancer if under age 26. Encourage safe sexual practices, to use condoms and limit partners if not already in a monogamous relationsh ip. Do monthly self breast exams. Have mammogram yearly or every other year depending on family history. BRCA testing is now available for patients with strong genetic history of female cancer. If interested contact the office. Engage in daily exercise of low impact aerobic exercise 45-60 minutes 4-5 times weekly. Avoid tobacco and illicit drugs as well as using moderation with alcohol intake less than 1-2 8 oz beverages daily. This lifestyle behavior pattern will lead to less health conditions and longer life span. If BMI greater than 25 weight watchers or dietary consult advised. Patient received above instructio ns, and questions have been answered. If you have any questions please call or respond to this email. Patient was made aware of the patient portal and may obtain a paper copy of today's plan if desired. [id number] Elham Olivarez , [facility] [address] [address] 05/31/2023 12:03:36 05/31/2023 15:02:23 Gynecologic examination 24883430 Z01.419 Take Calcium with Vitamin D 1200mg daily if not receiving in daily diet. It is strongly advised to have an annual flu shot and up can obtain at most pharmacies . If you have not had a TDap shot in the last 10 years you should obtain one as well. Discussed with patient & provided with informatio n regarding Gardisil vaccine to prevent the 4 strains for HPV that cause cervical cancer if under age 26. Encourage safe sexual practices, to use condoms and limit partners if not already in a monogamous relationsh ip. Do monthly self breast exams. Have mammogram yearly or every other year depending on family history. BRCA testing is now available for patients with strong genetic history of female cancer. If interested contact the office. Engage in daily exercise of low impact aerobic exercise 45-60 minutes 4-5 times weekly. Avoid tobacco and illicit drugs as well as using moderation with alcohol intake less than 1-2 8 oz beverages daily. This lifestyle behavior pattern will lead to less health conditions and longer life span. If BMI greater than 25 weight watchers or dietary consult advised. Patient received above instructio ns, and questions have been answered. If you have any questions please call or respond to this email. Patient was made aware of the patient portal and may obtain a paper copy of today's plan if desired. Pap sentSTD Screen declinedGe netic Screen discussedC olon Screen naDexa Screen [facility] PCP [id number] Ranjan Romo MD [place] [address],[place] [address] 08/03/2023 09:27:56 08/07/2023 10:32:50 Female sterilization 60419766 Z30.2 This patient presents for female sterilizat ion. The patient desires . She is certain that she no longer wants to be fertile. We discussed sterilizat ion in detail. I described the procedure to the patient in detail. We discussed alternativ es. The patient knows they are highly effective reversible options I explained laparoscop ic salpingect natalie you to her in great detail.. The patient understand s and is ready to proceed with laparoscop ic bilateral tubal ligation. She understand s the tubes will be removed. She knows this is not reversible . [id number] Ranjan Romo MD [place] [address],[place] [address] 10/01/2023 09:16:12 10/01/2023 09:17:15 [id number] Ranjan Romo MD [place] [address],[place] [address] 10/03/2023 13:59:45 10/03/2023 14:55:43 Postoperative care 928719957 Z48.89 this patient is a 28-year-ol d female who presents for postop follow-up. She had a laparoscop ic bilateral salpingect natalie. She is no complaints . Her incisions are clean dry and intact. She will follow-up as needed. We reviewed pathology. [id number] JEFFREY Kaur [place] [address],[place] [address] 03/11/2024 16:16:31 03/11/2024 16:59:10 Dysmenorrhea 092836814 N94.6 Reviewed all management optionsopt s to start slynd, rx sent, r/b/a reviewed Discussed all control options in great detail. Pt would like to start POP. She is aware of the risks and benefits.. She is also aware of the importance of taking at the same time every day. Encouraged use of condoms as the pill does not protect against STI's. Will return in 4 months for med check. Pt verbalized understand ing.med check in 4 months Time spent in visit is a total of 18 mins with at least 50% of visit consisting of counseling and review of plan of care. Health Concerns Section Related Observation LastModified by Organization Detai ls LastModified Time None Recorded Concern Status LastModified by Organization Details LastModified Time None Recorded Advance Directives Directive None Recorded Payers Encounter Date Sequence Insurance Name Policy Number Policy Tanner Covered Member ID Tanner Member ID Guarantor Name 05/31/2023 1 [place] [id number] Kennedi Fuentes Matthew [id number] Kennedi Fuentes Matthew 08/03/2023 1 [place] [id number] Kennedi Fuentes Matthew [id number] Kennedi Fuentes Matthew 09/27/2023 1 [place]) [id number] Kennedi Fuentes Matthew [id number] 07 Kennedi Fuentes Matthew 10/03/2023 1 [place] [id number] Kennedi Fuentes Matthew [id number] 07 Kennedi Fuentes Matthew 03/11/2024 1 [place] [id number] Kennedi Fuentes Matthew [id number] 07 Kennedi Fuentes Matthew Notes Date Note Type Note Provider Name and Address Organization Details Recorded Time 05/31/2023 text/html Annual GYNReport ed bypatient.History:no gynecologic complaints Menstrual cycle:Normal menses Urinary symptoms:No hematuria; No incontinence Vulva:No genital lesion Vagina:Normal vaginal discharge Breast:No breast pain; No breast lump; No nipple discharge Current Contraception:Satisfi ed with current contraception; Condoms Sexual complaints:No sexual complaints; No pain during intercourse; Normal libido Menopausal Symptoms:No menopausal symptoms; Normal vaginal lubrication Psychological symptoms:No depression; No anxiety; No PMDD Preventive measures:Encourage self breast examination; Encourage regular exercise; Encourage no tobacco use; Encourage regular mammograms starting age 40; Followed with yearly pap smears JEFFREY Amador-BC [address], [place], [address], [facility] 05/31/2023 14:15:54 08/03/2023 text/html This patient pre sents for female sterilization. The patient desires . She is certain that she no longer wants to be fertile. We discussed sterilization in detail. I described the procedure to the patient in detail. We discussed alternatives. The patient knows they are highly effective reversible options I explained laparoscopic salpingectomy you to her in great detail.. The patient understands and is ready to proceed with laparoscopic bilateral tubal ligation. She understands the tubes will be removed. She knows this is not reversible. Ranjan Romo MD [address], [place], [address], [facility] 08/06/2023 22:28:32 10/03/2023 text/html this patient is a 28-year-old female who presents for postop follow-up. She had a laparoscopic bilateral salpingectomy. She is no complaints. Her incisions are clean dry and intact. She will follow-up as needed. We reviewed pathology. Ranjan Romo MD [address], [place], [address], [facility] 10/03/2023 14:43:40 03/11/2024 text/html 28yo [id number] for evaluation of painful periodsbilateral salpingectomy for BC, done 4periods are monthly, lasting 4-5 days, normal flowhas noticed increased cramping 1-2 days prior to her periods, which will continue until about day 4 of her cycle neg n/v/fneg d/c, odors, itchingneg flu-like symptomsneg pain outside of her periods JEFFREY Kaur [address], [place], [address], [facility] 03/11/2024 16:52:43 OBGyn Episode No OBEpisode recorded.
--- OUTSIDE RECORDS SUMMARY | 2024-12-01 11:45 | XMS_ITS | Clinical Summary ---
Author Organization [facility] [employer] Address [address] [place] [address] Care Team Providers Care Mat Gauger Name Role Phone Unavailable Primary Care Provider Unavailabl e Source Comments [facility],non-owned Affiliates and Associated Physician Practices is amultiple site organization consisting of ambulatory clinics and hospital sitesin [place], [place], [place] and [place]. This disclosure is being madepursuant to the Care Everywhere program and may not contain all information available regarding this patient. Last updated 18.[facility] Allergies Active Allergy Reactions Criticality Noted Date [...] Comments Blood Pressure 106/68 09/02/2016 9:07 AM PEDIATRIC ASSISTANT Pulse 76 04/21/2016 2:36 PM CDT Temperature 37.3 C (99.1 F) 08/01/2016 10:13 AM PEDIATRIC ASSISTANT Respiratory Rate 20 02/24/2016 12:3 6 PM CDT Oxygen Saturation 97% 02/24/2016 12: 36 PM CDT Inhaled Oxygen Concentration - - Weight 131.3 kg (289 lb 6.4 oz) 02/22/2017 9:29 AM CDT Height 169.5 cm (5' 6.75 ) 09/02/2016 9:07 AM CS T Body Mass Index 45.67 09/02/2016 9:07 AM PEDIATRIC ASSISTANT Plan of Treatment Health Maintenance Due Date Last Done Comments PAP SMEAR 1996 HIV SCREENING 2011 HEPATITIS C SCREENING 05/09/2014 DTAP/TDAP/TD VACCINES (7 - Td or Tdap) 04/12/2017 04/12/2007, 04/20/2001, 08/18/1997, Additional history exists COVID-19 VACCINE ( season) 2024 INFLUENZA VACCINE (#1) 2024 6, 07/21/2014, 07/08/2013, Additional history exists DEPRESSION SCREENING 09/25/2024 ZOSTER VACCINE (1 of 2) 2046 HEPATITIS B VACCINE Completed 02/14/1997, 1996, 1996 HIB VACCINE Completed 08/18/1997, 10/27, 1996, Additional history exists HPV VACCINE Completed 12/18/2008, 07/27, 06/17/2008 MENINGOCOCCAL VACCINE Completed 10/17/2014, 011 MENINGOCOCCAL (Group B) VACCINE Aged Out No longer eligible based on patient's age to complete this topic PNEUMOCOCCAL VACCINE Aged Out No long er eligible based on patient's age to complete this topic Goals Goal Patient Goal Type Associated Problems [...] Where can I go for more information? [employer] ( ) www.aap.org, HealthyChildren.org www.healthychildren.org Website and free downloadable victor m for smartphones: http://www.CashSentinel/ [facility] Lifestyle: Use safety retraint in car Lifestyle On track( 016 2:39 PM CDT) Giulia Serna RN Note: NEW CAR SEAT SAFETY RULES Seat belt laws should apply to all vehicle occupants FLAKITA CASTRO Personal/Family 1995 [address] [place] [address] [facility] [employer] Employ[employer] [id number] [place] [id number]
--- OUTSIDE RECORDS SUMMARY | 2024-12-01 11:45 | XMS_ITS | Clinical Summary ---
Author Organization [facility] Address [address] [place] [address] Care Team Providers Care Smoke Eater Name Role Phone Anne Marie Abdi [employer]ACHT Primary Care Provider + Allergies No known active allergies Medications docusate sodium (COLACE) 100 mg capsuleIndicati ons:constipatio n Take 1 capsule (100 mg total) by mouth every 12 (twelve) hours for 14 days 28 capsule 05/08/2024 Active Active Problems Problem Noted Date Diagnosed Date Acute pain of right wrist 08/14/2018 Anxiety 02/04/2016 Surgical History Surgery Date Site/Laterality Comments WISDOM TOOTH EXTRACTION Family History Medical History Relation Name Comments Arthritis Mother Depression Mother Hyperlipidemia Mother Hypertension Mother Relation Name Status Comments Mother Social History Tobacco Use Types Packs/Day Years [...] on file Sexual Orientation Not on file Obstetrics History Last Filed Vital Signs Vital Sign Reading [...] 05/08/2024 4:47 PM CDT Plan of Treatment Health Maintenance Due Date Last Done Comments Cervical Cancer Screening 1996 Depression Screening 1996 Hepatitis C Screening 1996 Varicella Vaccines (1 of 2 - 13+ 2-dose series) 2009 Regular Well Visit/Exam 18-64 2014 DTaP/Tdap/Td Vaccine (2 - Td or Tdap) 04/12/2017 04/12/2007 Covid-19 Vaccine ( season) 2024 07/26/2022, 01/09/2021, 12/19/2020 Influenza Vaccine (#1) 2024 , 09/08/2021, 06/19/2019, Additional history exists Hepatitis B Screening Completed 02/14/1997 , 1996, 1996 HPV Vaccines Completed 12/18/2008, 07/27, 06/17/2008 Pneumococcal vaccine <65 Aged Out No longer eligible based on patient's age to complete this topic Insurance [facility]ly [facility] [place] [id number] [facility] [place] Care Teams Smoke Eater Relationship Specialty Start Date End Date Anne Marie Abdi NP PCP - General Nurse Practitioner 07/19/18
--- OUTSIDE RECORDS SUMMARY | 2024-12-01 11:45 | XMS_ITS | Data Portability ---
Author Organization [facility], Main Office Address [address] [place] [address] Assessment No assessment recorded. Plan of Treatment Reminders Order Date Submit Date Provider Last Modified By Organization Details Last Modified Time Details Appointments None recorded . Lab lipid panel, serum 023 05/26/20 23 [facility] (Lab), [address] [place], [address], 3 17:00:42 TSH, serum or plasma 023 05/26/[address] (Lab), [address] [place], [address], 3 08:37:34 CMP, serum or plasma 023 05/26/20 23 [facility] (Lab), [address] [place], [address], 3 17:00:42 glycohem oglobin, total, blood 023 05/26/[address] (Lab), [address] [place], [address], 3 08:37:33 CBC w/ auto diff 023 05/26/[address] (Lab), [address] [place], [address], 3 08:37:33 Referral None recorded . Procedures None recorded . Surgeries None recorded . Imaging None recorded . Medication Orders None recorded . Patient TargetsNo targets recorded. Patient Instructions Encounter Date Encounter Id Patient Instructions Last Modified By Organization Details Last Modified Time 05/26/2023 [id number] Fu in 1 year for wellness. [email or web address] Not available 05/26/2023 14:49:47 Reason for Referral None Reported. Results Created Date Observation Date Name Description Value Unit Range Abnormal Flag Note LastModifiedBy Organization Detail LastModifiedTime Result Notes None recorded. Problems Name Problem SNOMED Code Status Onset Date Resolution Date Notes Provider Name and Address Organization Details Recorded Time Morbid obesity 491297381 Active 2019 Not Available [facility] 3 16:40:06 Depressive disorder 89080425 Active 2017 Not Available [facility] 3 16:40:06 Anxiety 63279598 Active 2017 Not Available [facility] 3 16:40:06 Pain in wrist 79286602 Active 2017 Not Available [facility] 3 16:40:06 Problem Notes None recorded. Medical Equipment None Reported. Allergies Allergen ID Allergen Name Allergen Category Reaction Reaction Severity Criticality Documentation Date Start Date Code Code System Note Provider Name and Address Organization Details Recorded Time 49944 lamotrigi ne medicatio n hives Not available Not available 05/26/2023 81007 RxNorm Anne Marie Frankel RN [facility], [place] - [facility] [employer] 3 14:11:33 Medications Name Sig Start Date Stop Date Status Note LastModified by Organization Details LastModified Time amoxicillin 500 mg capsule 03/14 completed Not Available Not Available Not Available buspirone 5 mg tablet Take 1 tablet twice a day by oral route. 05/26 completed Not Available Not Available Not Available cetirizine 10 mg tablet Take 1 tablet every day by oral route. 09/08 completed Not Available Not Available Not Available permethrin 5 % topical cream 04/17 completed Not Available Not Available Not Available lamotrigine 25 mg tablet TAKE 1 TABLET BY MOUTH AT BEDTIME FOR 2 WEEKS, THEN INCREASE TO 2 TABLETS AT BEDTIME 05/26 completed Not Available Not Available Not Available clindamycin phosphate 1 % topical swab 04/17 completed Not Available Not Available Not Available fluticasone propionate 50 mcg/actuati on nasal spray,suspe nsion 05/26 completed Not Available Not Available Not Available escitalopra m 10 mg tablet Take 1 tablet every day by oral route. 06/19 completed Not Available Not Available Not Available escitalopra m 20 mg tablet TAKE 1 TABLET BY MOUTH EVERY DAY active Not Available Not Available No t Available hydrocodone 7.5 mg-acetamin ophen 325 mg/15 mL oral solution 06/16 completed Not Available Not Available Not Available Vyvanse 30 mg capsule 04/17 completed Not Available Not Available Not Available Iftikhar Fe 10/14 (28) 1 mg-20 mcg (21)/75 mg (7) tablet 04/17 completed Not Available Not Available Not Available Afluria Quad (PF) 60 mcg (15 mcg x 4)/0.5 mL IM syringe active Not Available Not Available N ot Available Vitals Date Recorded Body mass index (BMI) Body height Oxygen saturation Oxygen saturation in Arterial blood by Pulse oximetry Heart rate Body temperature Body weight Systolic blood pressure Diastolic blood pressure Provider Name and Address Organization Details Last Updated DateTime 2 49.5 kg/m2 170.18 cm 98 % 98 % 70 /min 97 [degF] 131805. 19 g 124 mm[Hg] 82 mm[Hg] Not Available [facility] 3 16:39:38 Date Recorded Body mass index (BMI) Body height Oxygen saturation Oxygen saturation in Arterial blood by Pulse oximetry Heart rate Body temperature Body weight Systolic blood pressure Diastolic blood pressure Provider Name and Address Organization Details Last Updated DateTime 2 49.3 kg/m2 170.18 cm 97 % 97 % 67 /min 97.6 [degF] 264437. 6 g 126 mm[Hg] 78 mm[Hg] Not Available [facility] 3 16:39:38 Date Recorded Oxygen saturation Oxygen saturation in Arterial blood by Pulse oximetry Heart rate Body temperature Body weight Systolic blood pressure Diastolic blood pressure Provider Name and Address Organization Details Last Updated DateTime 1 99 % 99 % 63 /min 97.4 [degF] 554273. 78 g 122 mm[Hg] 82 mm[Hg] Not Available [facility] 3 16:39:38 Date Recorded Body weight Body mass index (BMI) Body height Body temperature Heart rate Respiratory rate Oxygen saturation Oxygen saturation in Arterial blood by Pulse oximetry Pain severity - 0-10 verbal numeric rating [Score] - Reported Heart rate Systolic blood pressure Diastolic blood pressure Provider Name and Address Organization Details Last Updated DateTime 484525. 19 g 47.5 kg/m2 170.18 cm 96.8 [degF] 74 /min 20 /min 97 % 97 % 0 74 /min 120 mm[Hg] 60 mm[Hg] Anne Marie Frankel RN [facility] [employer] [facility] 14:15:54 Social History Question Answer Notes LastModified by Organizat ion Details LastModified Time Tobacco Smoking Status Never Smoker Anne Marie Frankel RN [facility], [facility] [employer] [facility] 05/26/2023 14:17:15 Do You Have An Advance Directive? No Information not available 05/26/2023 What Is Your Level Of Alcohol Consumption? Occasional Information not available 05/26/2023 Is Blood Transfusion Acceptable In An Emergency? Yes Information not available 05/26/2023 What Is Your Level Of Caffeine Consumption? Occasional Information not available 05/26/2023 What Is Your Code Status? Full Code Information not available 05/26/2023 In The 14 Days Before Symptom Onset, Have You Had Close Contact With A Laboratory-confi rmed COVID-19 While That Case Was Ill? No Information not available 05/26/2023 In The 14 Days Before Symptom Onset, Have You Had Close Contact With A Person Who Is Under Investigation For COVID-19 While That Person Was Ill? No Information not available 05/26/2023 Are You Currently Employed? Yes Information not available 05/26/2023 Which Illicit Or Recreational Drugs Have You Used? [place] Information not available 05/26/2023 What Is The Highest Grade Or Level Of School You Have Completed Or The Highest Degree You Have Received? NA07154-2 Information not available 05/26/2023 What Is Your Occupation? [employer] Information not available 05/26/2023 Have There Been Any Changes To Your Family Or Social Situation? No Information not available 05/26/2023 Are There Any Guns Present In Your Home? Yes In Safe Information not available 05/26/2023 How Many Years Have You Used Illicit Or Recreational Drugs? 2 Information not available 05/26/2023 Where Do You Live? [facility] Information not available 05/26/2023 Do You Have A Medical Power Of Supervisor [place]? No Information not available 05/26/2023 How Many Children Do You Have? -2 Information not available 05/26/2023 Do You Have Any Pets? Yes Information not available 05/26/2023 What Is Your Relationship Status? Single Information not available 05/26/2023 Do You Use Your Seat Belt Or Car Seat Routinely? Yes Information not available 05/26/2023 Do You Have Smoke And Carbon Monoxide Detectors In Your Home? Yes Information not available 05/26/2023 Are There Any Smokers In Your House? No Information not available 05/26/2023 Do You Participate In Social Media? Yes Information not available 05/26/2023 Do You Feel Stressed (tense, Restless, Nervous, Or Anxious, Or Unable To Sleep At Night)? CG8800-3 Information not available 05/26/2023 Do You Use Any Illicit Or Recreational Drugs? Yes Information not available 05/26/2023 Do You Use Sunscreen Routinely? Yes Information not available 05/26/2023 Have You Recently Traveled Abroad? No Information not available 05/26/2023 Have You Used IV Drugs? No Information not available 05/26/2023 Sex: Unknown Functional Status Question Answer Note LastModified by Organization D etails LastModified Time What is your exercise level? None Information not available 05/26/2023 Mental Status None recorded. Family History Nothing Reported Notes:thryoid issues, hypert ension, breast cancer ( gma), [place] (gpa) Medical History Condition Response DEPRESSION (INCLUDING POST ) Y Gynecological History Statement/Question Response Flow Moderate Date of LMP 05/22/2023 STIs/STDs N Current Control Method None Most Recent Mammogram Breast Problems none Date of Last Colonoscopy Frequency of Cycle (Q days) 28 Most Recent Bone Density Menses Monthly Y Date of Last Pap Smear Discharge none Obstetrics History GPAL:G 0 P 0 0 0 0 Immunizations Vaccine Type Date Status Note Provider Nam e and Address Organization Details Recorded Time Influenza, split virus, quadrivalent, PF 3 completed Anne Marie Frankel RN [facility] [place] - [facility] [employer] [facility] 05/26/2023 16:59:54 Influenza, split virus, quadrivalent, preservative 8 completed Not Available [facility] 11/23/2022 16:40:46 Influenza, split virus, quadrivalent, PF 1 completed Not Available Critical [facility] hospital 11/23/2022 16:40:46 Influenza, split virus, quadrivalent, PF 9 completed Not Available Critical access hospital 11/23/2022 16:40:46 Past Encounters Encounter ID Performer Location Encounter Start Date Encounter Closed Date Diagnosis/Indication Diagnosis SNOMED-CT Code Diagnosis ICD10 Code Diagnosis Note [id number] [address] [address] 09/08/2021 00:00:00 09/08/2021 14:45:[id number] [address] 03/08/2022 00:00:00 03/08/2022 10:24:[id number] [address] 04/19/2022 00:00:00 04/19/2022 11:56:56 [id number] Anne Marie Abdi NP [address] [address] 05/26/2023 13:58:29 05/26/2023 14:56:32 Adult health examination 917949158 Z00.00 Encouraged well balanced meals, active lifestyle, and routine vision and dental appts. Anemia screening 0231243 07 Z13.0 Diabetes m ellitus screening 933905852 Z13.1 Thyroid di sorder screening 149450788 Z13.29 Hyperlipid emia screening 121528318 Z13.220 Administra tion of influenza vaccine 11751414 Z23 Health Concerns Section Related Observation LastModified by Organization Detai ls LastModified Time None Recorded Concern Status LastModified by Organization Details LastModified Time None Recorded Advance Directives Directive N: Payers Encounter Date Sequence Insurance Name Policy Number Policy Tanner Covered Member ID Tanner Member ID Guarantor Name 05/26/2023 1 [place]: ([place] [id number] Kennedi Castro [id number] Kennedi Castro Notes Date Note Type Note Provider Name and Address Organization Details Recorded Time 05/26/2023 text/html Here for wellness and cough. States she was sick last week. Feeling much better now. No more sore throat. No more congestion. Now cough and getting appetite back and never fever. Anne Marie Abdi NP [address] [facility] [address], [place], [address], [facility] 05/26/2023 14:55:15 OBGyn Episode No OBEpisode recorded.
--- NOTE | 2024-12-01 12:05 | ED_ITS ---
HPI - Back Pain/Injury General Chief Complaint: Back Pain/Injury Stated Complaint: Back pain since yesterday Time Seen by Provider: 12/01/24 11:54 History of Present Illness HPI Narrative: 29-year-old otherwise healthy female with a past medical history including chronic left-sided back pain for last 10+ years. Patient presents to the emergency room with complaint of left-sided back pain. She felt like it was worsened last night while she was twisting and sleeping awkwardly in bed. Patient denies any falls or injury otherwise. Was otherwise in her normal state of health. Took Tylenol without any relief of symptoms. Patient states she has previously been to a chiropractor for this but never been evaluated by Physical therapy or Sports Medicine, Orthopedics. She denies any weakness, neuropathy, footdrop, difficulty ambulating. She states she is wearing a compression waist technical trainer which helps her pain but states without this her pain is more significant. No fever chills. No central pain. Related Data Home Medications ?Medication ?Instructions ?Recorded ?Confirmed ?Last Taken ?Type magnesium 250 mg tablet 250 mg PO DAILY 09/14/23 10/08/24 Unknown History drospirenone (contraceptive) 4 mg 1 tablet PO DAILY 03/26/24 10/08/24 Unknown History (28) tablet (Slynd) melatonin 10 mg capsule 10 mg PO QHS 03/26/24 10/08/24 Unknown History Allergies Allergy/AdvReac Type Severity Reaction Status Date / Time venom-honey bee Allergy Severe SEVERE Verified 12/01/24 11:55 SWELLING AT SITE kiwi Allergy Mild Itching Verified 12/01/24 11:55 avocado Allergy Vomiting Verified 12/01/24 11:55 lamotrigine Allergy Hives Verified 12/01/24 11:55 Review of Systems Review of Systems: As reviewed above in HPI [facility] Past Medical History Medical History Anxiety Allergies Morbid obesity Surgical History Surgical History H/O wisdom tooth extraction H/O bilateral salpingectomy Hx of tonsillectomy Family History Family History Father Hypertension Thyroid disorder Mother Diabetes mellitus Hypertension Depression Sibling Acute myocardial infarction Grandparent Alcoholism Social History Social History Social History: 10/01/24 Patient declined SDOH Smoking status: Never smoker Alcohol intake: current Alcohol use details: RARE Substance use: never Do You Feel Safe in your Home?: Yes Lack of Transportation: No Lack of Food: Never True Current Housing: I Have Housing Concerned About Future Housing: No Difficulty Paying Gas/Electric Bills: No Difficulty Paying for Meds: No Education: Don't Know Difficulty w/ Childcare or Family Care: No Living arrangements: with family Occupation/Education: occupation 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 Mucous membranes moist. NECK: Supple. CHEST: [Clear to auscultation. No respiratory distress.] HEART: [Regular rate and rhythm]. No murmur heard. [Normal peripheral pulses.] ABDOMEN: [Soft, nondistended], [nontender], [No rigidity or guarding] EXTREMITIES: Normal range of motion. [No edema.] Able to flex and extend at the hip, knee and plantar and dorsiflex at the ankle with 5/5 strength. Ambulated in the examination room without difficulty. Focal tenderness to palpation of the left sacroiliac joint, no midline lumbar tenderness. No step- offs or deformities. No crepitus with palpation. No overlying skin changes. SKIN: Warm, dry, no rash. NEURO: [No focal deficits]. Alert and oriented [x3.] PSYCH: [Normal mood and affect.] MDM - Back Pain/Injury MDM Narrative Medical decision making narrative: 29-year-old female with history of chronic low back pain left-sided for last 10+ years. She presents today with acute on chronic back pain after potentially sleeping or twisting long in the middle of the night. She has focal tenderness over the left sacroiliac joint with no restricted range of motion or weakness. She has no neurological complaints. Her examination is reassuring with 2+ pulses, full range of motion with good ambulation. No signs of central pathology such as cauda equina or conus medullaris, no red flag signs of back pain given her exam and history. No saddle anesthesias or urinary incontinence. Suspicion presently is for acute on chronic lumbago, sacroiliitis, musculoskeletal strain. Will obtain x-rays of the lumbar spine and hip as she states that her pain sometimes radiates towards her hip but never radiates down her leg or presenting as any sciatic type symptoms. Patient was given an intramuscular dose of Decadron and Toradol for analgesia and inflammation control and will be sent home with a combination of anti-inflammatory measures and referral to PCP for possible physical therapy and other interventions. X-rays of the lumbar spine hips showed no acute process. Patient likely has musculoskeletal strain and acute on chronic lumbago. Will be sent home with a short course of steroids for inflammation as well as topical therapy such as Voltaren and oral Robaxin as needed for pain. Patient felt comfortable with this plan and will follow-up with regular doctor outpatient. She was given return precautions. Medical Records Attestation: I reviewed the patient's medical records. Imaging Data Attestation: I personally reviewed and interpreted this imaging study as follows: My impression: Impressions Hip X-Ray 12/01/24 12:25 Impression: No significant abnormality is seen. Lumbar Spine X-Ray 12/01/24 12:25 Impression: No significant abnormality. Discharge Plan Discharge Clinical Impression: Lumbago, Acute on chronic low back pain Patient Disposition: Home, Self-Care Condition: Stable Instructions: Antibiotic Form, Acute Low Back Pain (ED), Lower Back Exercises (ED) Additional Instructions: We will send you home with several remedies to try for back pain. x-ray showed no acute concerning findings. Return to the ER if you have increased pain in your back, you develop lower extremity weakness/numbness/paralysis, you have numbness or tingling in your private parts, or you are unable to control your ability to urinate/stool. Patient Language: Lao Prescriptions: New methocarbamol 750 mg tablet 750 mg PO TID PRN (Reason: pain) Qty: 20 0RF prednisone 50 mg tablet 50 mg PO DAILY 5 Days Qty: 5 0RF lidocaine 5 % adhesive patch,medicated 1 patch topical DAILY Qty: 15 0RF Rx Instructions: leave on most painful area for up to 12 hrs diclofenac sodium [Arthritis Pain (diclofenac)] 1 % gel 2 g topical QID Qty: 100 0RF Rx Instructions: apply to single elbow, wrist or hand; for hand includes palm/fingers/back of hand No Action Slynd 4 mg (28) tablet 1 tablet PO DAILY melatonin 10 mg capsule 10 mg PO QHS Rx Instructions: take 3 10mg capsules at bedtime escitalopram oxalate [Lexapro] 20 mg tablet 20 mg PO HS Qty: 90 1RF buspirone 5 mg tablet 5 mg PO BID Qty: 60 3RF amoxicillin 500 mg tablet 500 mg PO Q12H Qty: 20 0RF magnesium 250 mg Tablet 250 mg PO DAILY Follow-up/Referrals: Anne Marie Abdi APRN [Primary Care Provider] - Time of Disposition: 12:53
--- OUTSIDE RECORDS SUMMARY | 2024-12-01 12:07 | XMS_ITS | Referral Summary ---
Author Organization [facility] Address [address] [place] [address] Care Team Providers Care Forestry Hunter Name Role Phone Anne Marie Abdi GREEN BUILDING ARCHITECT Primary Care Provider + Allergies No known [...] Plan of Treatment Not on file Insurance [facility] Member Subscriber Plan / Payer (Ef fective 2000-Present) Name:Flakita Castro Relation to Subscriber:Child Name:FLAKITA CASTRO Date of :1995 (Home) Address: [facility] [place] [address] Payer ID:[id number] (NAIC) Group ID:[id number] Type:[facility] Address: [address] [facility]ICE [facility] [place] Care Teams Forestry Hunter Relationship Specialty Start Date End Date Anne Marie Abdi NP PCP - General Nurse Practitioner 07/19/18
--- OUTSIDE RECORDS SUMMARY | 2024-12-01 12:07 | XMS_ITS | Referral Summary ---
Author Organization [facility] Address [address] [facility] [place] [address] Care Team Providers Care Superintendent Car Construction Name Role Phone Unavailable Primary Care Provider Unavailabl e Source Comments [facility],non-owned Affiliates and Associated Physician Practices is amultiple site organization consisting of ambulatory clinics and hospital sitesin [place], [place], [place] and [place]. This disclosure is being madepursuant to the Care Everywhere program and may not contain all information available regarding this patient. Last updated 18.[facility] Allergies Active Allergy Reactions Criticality Noted Date [...] Comments Blood Pressure 106/68 09/02/2016 9:07 AM COUNTY HOME DEMONSTRATOR Pulse 76 04/21/2016 2:36 PM CDT Temperature 37.3 C (99.1 F) 08/01/2016 10:13 AM COUNTY HOME DEMONSTRATOR Respiratory Rate 20 02/24/2016 12:3 6 PM CDT Oxygen Saturation 97% 02/24/2016 12: 36 PM CDT Inhaled Oxygen Concentration - - Weight 131.3 kg (289 lb 6.4 oz) 02/22/2017 9:29 AM CDT Height 169.5 cm (5' 6.75 ) 09/02/2016 9:07 AM CS T Body Mass Index 45.67 09/02/2016 9:07 AM COUNTY HOME DEMONSTRATOR Plan of Treatment Not on file Goals [...] Where can I go for more information? [place] [employer] ( ) www.aap.org, HealthyChildren.org www.healthychildren.org Website and free downloadable victor m for smartphones: http://www.Domob/ [facility] Lifestyle: Use safety retraint in car Lifestyle On track( 016 2:39 PM CDT) Giulia Serna RN Note: NEW CAR SEAT SAFETY RULES Seat belt laws should apply to all vehicle occupants Administered Medications FLAKITA CASTRO Personal/Family 1995 [address] [place] [address] [facility] [email or web address] Employer [id number] [place] [address]
--- OUTSIDE RECORDS SUMMARY | 2024-12-01 12:07 | XMS_ITS | Clinical Summary ---
Author Organization [facility] Address [address] [place] [address] Care Team Providers Care Tour Bus Driver Name Role Phone Anne Marie Abdi COLLEGE OR UNIVERSITY BUSINESS MANAGER Primary Care Provider + Allergies No known [...] patient's age to complete this topic Insurance [facility] [place] [id number] [facility] [place] Care Teams Tour Bus Driver Relationship Specialty Start Date End Date Anne Marie Abdi NP PCP - General Nurse Practitioner 07/19/18
--- OUTSIDE RECORDS SUMMARY | 2024-12-01 12:07 | XMS_ITS | Continuity of Care Document ---
Author Organization [facility] Address [address] [place] [address] Phone Care Team Providers Care Banquet Stewardess Name Role Phone [facility] Unavailable Unavail able Eduar Wyatt Unavailable Unavailable Procedures Procedure Date Vision Svcs Frames Purchases SV Poly Carb Sph +/- 7.12 To +/- 20 D No SV Poly Carb Sph [place] To +/- 4 010 Polycarb Lens Per Lens Eye Exam, New Patient Refraction Advance Directives Directive Yes / No Effective Date File Name No Information Encounters Encounter Description Practice Location Reason(s) For Visit Diagnoses Date Provider Providers Copied on Encounter [facility], [address] [place] [address] [facility] [address], [place], [place], [id number], [place] tel:[phone] [facility] No Information 0-201 0 [facility] . [address] [facility], [facility] [address], [place], [id number], [place]. tel:[phone] Referring Provider: Gianfranco Montero, [address] [place], [place] [address], [place], [address]. tel:[phone] sulting Provider: Eduar Wyatt, [address] [place], [place] [address]ate [facility], [place], [address]. tel:[phone] [facility], [address] [place] [address] [address], [place], [place], [id number], [place] tel:[phone] [facility] No Information 4-201 0 Castelan OD Gianfranco. [address] , [address], [place], [address], [place]. tel:[phone] Family History Family Member Type Diagnosis Age [...]
--- OUTSIDE RECORDS SUMMARY | 2024-12-01 12:07 | XMS_ITS | Clinical Summary ---
Author Organization [facility] Address [address] [facility] [place] [address] Care Team Providers Care Workforce Consultant Name Role Phone Unavailable Primary Care Provider Unavailabl e Source Comments [facility],non-owned Affiliates and Associated Physician Practices is amultiple site organization consisting of ambulatory clinics and hospital sitesin [place], [place], [place] and [place]. This disclosure is being madepursuant to the Care Everywhere program and may not contain all information available regarding this patient. Last updated 18.[facility] Allergies Active Allergy Reactions Criticality Noted Date [...] Comments Blood Pressure 106/68 09/02/2016 9:07 AM ELECTRICIAN SUBSTATION Pulse 76 04/21/2016 2:36 PM CDT Temperature 37.3 C (99.1 F) 08/01/2016 10:13 AM ELECTRICIAN SUBSTATION Respiratory Rate 20 02/24/2016 12:3 6 PM CDT Oxygen Saturation 97% 02/24/2016 12: 36 PM CDT Inhaled Oxygen Concentration - - Weight 131.3 kg (289 lb 6.4 oz) 02/22/2017 9:29 AM CDT Height 169.5 cm (5' 6.75 ) 09/02/2016 9:07 AM CS T Body Mass Index 45.67 09/02/2016 9:07 AM ELECTRICIAN SUBSTATION Plan of Treatment Health Maintenance Due Date [...] Where can I go for more information? [place] [employer]s ( ) www.aap.org, HealthyChildren.org www.healthychildren.org Website and free downloadable victor m for smartphones: http://www.Elixent/ [facility] Lifestyle: Use safety retraint in car Lifestyle On track( 016 2:39 PM CDT) Giulia Serna RN Note: NEW CAR SEAT SAFETY RULES Seat belt laws should apply to all vehicle occupants FLAKITA CASTRO Personal/Family 1995 [address] [place] [address] [facility] [employer] Employer [id number] [place] [address]
--- OUTSIDE RECORDS SUMMARY | 2024-12-01 12:07 | XMS_ITS | Patient Health Summary ---
Author Organization [facility] Address [address] [place] [address] Care Team Providers Care Day Porter Name Role Phone Unavailable Primary Care Provider Unavailabl e Note from [facility],non-owned Affiliates and Associated Physician Practices is amultiple site organization consisting of ambulatory clinics and hospital sitesin [place], [place], [place] and [place]. This disclosure is being madepursuant to the Care Everywhere program and may not contain all information available regarding this patient. Last updated 18.[facility] Allergies * Bee(Swelling) Medications * Be aware [...] Comments Blood Pressure 106/68 09/02/2016 9:07 AM RAWHIDE BONE ROLLER Pulse 76 04/21/2016 2:36 PM CDT Temperature 37.3 C (99.1 F) 08/01/2016 10:13 AM RAWHIDE BONE ROLLER Respiratory Rate 20 02/24/2016 12:3 6 PM CDT Oxygen Saturation 97% 02/24/2016 12: 36 PM CDT Inhaled Oxygen Concentration - - Weight 131.3 kg (289 lb 6.4 oz) 02/22/2017 9:29 AM CDT Height 169.5 cm (5' 6.75 ) 09/02/2016 9:07 AM CS T Body Mass Index 45.67 09/02/2016 9:07 AM RAWHIDE BONE ROLLER Procedures * XR FOOT LEFT 2VW(Performed 03/02/2017) [...] CBC W AUTO DIFFERENTIAL (08/01/2016 11:05 AM RAWHIDE BONE ROLLER) WBC 7.0 3.4 - 10.8 x10E3/uL [facility] [...] BLOOD SPECIMEN / Unknown 08/01/2016 11:05 AM RAWHIDE BONE ROLLER 08/01/2016 Narrative Resulting Agency Comment [facility] [address] [facility] [id number] Diana Cheek MD LAB - HEMATOLOGY ORD ERABLES [facility] INSURANCE BILL [address] [place] [address] * COMPREHENSIVE METABOLIC PANEL (08/01/2016 11:05 AM RAWHIDE BONE ROLLER) Glucose 84 65 - 99 mg/dL [facility] [...] BLOOD SPECIMEN / Unknown 08/01/2016 11:05 AM RAWHIDE BONE ROLLER 08/01/2016 Narrative Resulting Agency Comment [facility] [address] [facility] [phone] Diana Cheek MD LAB - CHEMISTRY ZELDA HUNTER [facility] INSURANCE BILL [address] [place] [address] * (ABNORMAL) LIPASE BLOOD (08/01/2016 11:05 AM RAWHIDE BONE ROLLER) Lipase 62(H) 0 - 59 U/L [facility] INSURANCE BILL Blood BLOOD SPECIMEN / Unknown 08/01/2016 11:05 AM RAWHIDE BONE ROLLER 08/01/2016 Narrative Resulting Agency [facility] [address] [facility] [phone] Diana Cheek MD LAB - CHEMISTRY ZELDA HUNTER Performing Organization Address City/[facility]/ZIP Co de Phone Number [facility] INSURANCE BILL [address] [place] [address] * AMYLASE BLOOD (08/01/2016 11:05 AM RAWHIDE BONE ROLLER) Amylase 103 31 - 124 U/L [facility] INSURANCE BILL Blood BLOOD SPECIMEN / Unknown 08/01/2016 11:05 AM RAWHIDE BONE ROLLER 08/01/2016 Narrative Resulting Agency Comment [facility] [address] [facility] [id number] Diana Cheek MD LAB - CHEMISTRY ZELDA HUNTER Performing Organization Address City/[facility]/ZIP Co de Phone Number [facility] INSURANCE BILL [address] [place] [address] * HEMOGLOBIN A1C (HgbA1C) (01/30/2016 8:46 AM CDT) Hemoglobin A1c 5.6 4.8 - 5.6 % [facility] ACCOUNT BILL Comment: . Pre-diabetes: 5.7 - 6.4 Diabetes: >6.4 Glycemic control for adults with diabetes: <7.0 Whole blood specimen (specimen) BLOOD SPECIMEN WITH EDTA / Unknown 01/30/2016 8:46 AM CDT 01/30/2016 1:19 PM CDT Narrative Resulting Agency [facility] [address] [facility] [address] [phone] Diana Cheek MD LAB - CHEMISTRY ZELDA HUNTER [facility] ACCOUNT BILL * GLUCOSE (01/30/2016 8:46 AM CDT) Glucose 90 65 - 99 mg/dL [facility] ACCOUNT BILL Blood specimen (specimen) BLOOD SPECIMEN / Unknown 01/30/2016 8:46 AM CDT 01/30/2016 1:19 PM CDT Narrative Resulting Agency Comment [facility] [place] [address] [phone] Diana Cheek MD LAB - CHEMISTRY ZELDA HUNTER Performing Organization Address [facility] de Phone Number [facility] ACCOUNT BILL * TSH (01/30/2016 8:46 AM CDT) TSH 1.510 0.450 - 4.500 uIU/mL [facility] ACCOUNT BILL Blood specimen (specimen) BLOOD SPECIMEN / Unknown 01/30/2016 8:46 AM CDT 01/30/2016 1:19 PM CDT Narrative Resulting Agency Comment [facility] [place] [address] [phone] Diana Cheek MD LAB - CHEMISTRY ZELDA HUNTER Performing Organization Address [facility] de Phone Number [facility] ACCOUNT BILL * T4 FREE (01/30/2016 8:46 AM CDT) T4 Free 1.06 0.93 - 1.60 ng/dL [facility] ACCOUNT BILL Blood specimen (specimen) BLOOD SPECIMEN / Unknown 01/30/2016 8:46 AM CDT 01/30/2016 1:19 PM CDT Narrative Resulting Agency Comment [facility] [place] [address] [phone] Diana Cheek MD LAB - CHEMISTRY ZELDA HUNTER Performing Organization Address City/[facility]/ZIP Co de Phone Number [facility] ACCOUNT BILL [...] PM CDT Narrative Resulting Agency Comment [facility] [address] [phone] Diana Cheek MD [facility] Organization Address City/State/ZIP Co de Phone Number [...] pH units Blood UA neg Negative Specific [place] UA POCT 1.02 1.002 - 1.030 Ketone [...] PM CDT Narrative Resulting Agency Comment [facility] [address] [phone] Rubi Knowles MD LAB - MICROBIOLOGY O RDERABLES [facility] ACCOUNT BILL
[2024-12-01] MEDS: KETOROLAC 30 MG/ML VIAL (*BKC) IM (13:10)
[2024-12-01] MEDS: dexAMETHasone SOD PHOS INJ 10 MG/ML 1 ML VIAL IM (13:11)
== END 2024-12-01 13:21 | disposition home or self-care (01) ==
PROVIDERS: Emergency Provider Student in an Organized Health Care Education/Training Program; PCP Nurse Practitioner Family
DX: M54.50 Low back pain, unspecified (principal); G89.29 Other chronic pain; E66.01 Morbid (severe) obesity due to excess calories; Z68.42 Body mass index [BMI] 45.0-49.9, adult; F41.9 Anxiety disorder, unspecified; Z90.79 Acquired absence of other genital organ(s); Z79.3 Long term (current) use of hormonal contraceptives; Z79.899 Other long term (current) drug therapy
CPT/HCPCS: 72100; 73502; 96372; 99284; J1100; J1885